=== PATIENT | male | born 1940 ===

== ENCOUNTER 2021-12-31 12:55 | Emergency (ER) | payer MEDICARE, OTHER ==
[2021-12-31 13:07] VITALS: RESP 16; TEMP 98
[2021-12-31] MEDS ORDERED: SODIUM CHLORIDE 0.9% 500 ML 500 ML IV STA (13:18)
--- NOTE | 2021-12-31 13:24 | ED ---
General Adult HPI - General Chief complaint: Weakness Stated complaint: COVID +,Weakness Time Seen by Provider: 12/31/21 13:09 Source: patient, RN notes reviewed, old records reviewed Mode of arrival: ambulatory Limitations: no limitations - History of Present Illness Initial comments: 81-year-old male presents from [facility] where he resides with increased generalized weakness. Patient was diagnosed with coronavirus 5 days ago. He was started on oral antivirals. Patient has had decreased appetite according to staff member who provides history. The patient is unable to contribute to history. He does have developed mental delay and autism. There was a minor fall without reported injury which occurred yesterday. There's been some diarrhea. No reported difficulty breathing. - Related Data Previous Rx's Medication Instructions Recorded Cephalexin [Keflex] 500 mg PO TID #21 cap 12/31/21 Allergies Allergy/AdvReac Type Severity Reaction Status Date / Time Benzodiazepines Allergy Unknown Verified 12/31/21 16:05 haloperidol Allergy Unknown Verified 12/31/21 16:05 Review of Systems ROS Statement: Those systems with pertinent positive or pertinent negative responses have been documented in the HPI. ROS Other: All systems not noted in ROS Statement are negative. Past Medical History Past Medical History: Unable to Obtain History of Any Multi-Drug Resistant Organisms: Unobtainable Past Surgical History: Unable to Obtain Past Psychological History: Unable to Obtain Past Alcohol Use History: Unable to Obtain Past Drug Use History: Unable to Obtain General Exam Limitations: no limitations General appearance: lethargic Head exam: Present: atraumatic, normocephalic Eye exam: Present: normal appearance, PERRL, other ENT exam: Present: mucous membranes dry Respiratory exam: Present: normal lung sounds bilaterally. Absent: respiratory distress, wheezes Cardiovascular Exam: Present: regular rate, normal rhythm GI/Abdominal exam: Present: soft. Absent: distended, tenderness Extremities exam: Present: normal inspection, normal capillary refill. Absent: pedal edema Neurological exam: Absent: motor sensory deficit Skin exam: Present: warm Course Vital Signs 12/31/21 13:02 Temperature 98 F Pulse Rate 78 Respiratory 16 Rate Blood Pressure 102/59 O2 Sat by Pulse 99 Oximetry Medical Decision Making - Medical Decision Making 81-year-old male with generalized weakness, currently being treated for jose navirus. He's had symptoms for the past 5 days. Patient accompanied by caregiver from the [facility] where he resides. This is with a history of his current illnesses obtained. Chest x-ray shows a questionable infiltrate development to this may be coronavirus are secondary bacterial pneumonia. He has normal white blood cell count, mild anemia, mild acute kidney injury with creatinine 1.49. Lactic acid is 2.2. Patient's given IV fluids in the emergency department. He is given a dose of IV antibiotics with the presence of infiltrate on x-ray. Urinalysis was not able to be obtained. He will be started on a short course of antibiotics to cover the possibility of UTI as well as developing bacterial pneumonia. Patient will be discharged back to the [facility]. - Lab Data Result diagrams: 12/31/21 13:34 12/31/21 13:34 Lab Results 12/31/21 12/31/21 12/31/21 Range/Units 13:34 13:34 13:34 WBC 4.8 (3.8-10.6) k/uL RBC 3.73 L (4.30-5.90) m/uL Hgb 12.3 L (13.0-17.5) gm/dL Hct 37.7 L (39.0-53.0) % MCV 101.1 H (80.0-100.0) fL MCH 32.9 (25.0-35.0) pg MCHC 32.6 (31.0-37.0) g/dL RDW 13.7 (11.5-15.5) % Plt Count 176 (150-450) k/uL MPV 8.5 Neutrophils % 70 % Lymphocytes % 21 % Monocytes % 6 % Eosinophils % 1 % Basophils % 0 % Neutrophils # 3.3 (1.3-7.7) k/uL Lymphocytes # 1.0 (1.0-4.8) k/uL Monocytes # 0.3 (0-1.0) k/uL Eosinophils # 0.0 (0-0.7) k/uL Basophils # 0.0 (0-0.2) k/uL Macrocytosis Slight PT 10.4 (9.0-12.0) sec INR 1.0 (<1.2) APTT 25.4 (22.0-30.0) sec Sodium 144 (137-145) mmol/L Potassium 4.5 (3.5-5.1) mmol/L Chloride 108 H (98-107) mmol/L Carbon Dioxide 24 (22-30) mmol/L Anion Gap 12 mmol/L BUN 21 H (9-20) mg/dL Creatinine 1.49 H (0.66-1.25) mg/dL Est GFR (CKD-EPI)AfAm 51 (>60 ml/min/1.73 sqM) Est GFR (CKD-EPI)NonAf 44 (>60 ml/min/1.73 sqM) Glucose 85 (74-99) mg/dL Lactic Ac Sepsis Rflx Plasma Lactic Acid Juan (0.7-2.0) mmol/L Calcium 8.6 (8.4-10.2) mg/dL Magnesium 1.8 (1.6-2.3) mg/dL Total Bilirubin 0.4 (0.2-1.3) mg/dL AST 30 (17-59) U/L ALT 19 (4-49) U/L Alkaline Phosphatase 123 (38-126) U/L Total Protein 6.5 (6.3-8.2) g/dL Albumin 3.8 (3.5-5.0) g/dL 12/31/21 12/31/21 Range/Units 13:34 14:03 WBC (3.8-10.6) k/uL RBC (4.30-5.90) m/uL Hgb (13.0-17.5) gm/dL Hct (39.0-53.0) % MCV (80.0-100.0) fL MCH (25.0-35.0) pg MCHC (31.0-37.0) g/dL RDW (11.5-15.5) % Plt Count (150-450) k/uL MPV Neutrophils % % Lymphocytes % % Monocytes % % Eosinophils % % Basophils % % Neutrophils # (1.3-7.7) k/uL Lymphocytes # (1.0-4.8) k/uL Monocytes # (0-1.0) k/uL Eosinophils # (0-0.7) k/uL Basophils # (0-0.2) k/uL Macrocytosis PT (9.0-12.0) sec INR (<1.2) APTT (22.0-30.0) sec Sodium (137-145) mmol/L Potassium (3.5-5.1) mmol/L Chloride (98-107) mmol/L Carbon Dioxide (22-30) mmol/L Anion Gap mmol/L BUN (9-20) mg/dL Creatinine (0.66-1.25) mg/dL Est GFR (CKD-EPI)AfAm (>60 ml/min/1.73 sqM) Est GFR (CKD-EPI)NonAf (>60 ml/min/1.73 sqM) Glucose (74-99) mg/dL Lactic Ac Sepsis Rflx Y Plasma Lactic Acid Juan 2.2 H* (0.7-2.0) mmol/L Calcium (8.4-10.2) mg/dL Magnesium (1.6-2.3) mg/dL Total Bilirubin (0.2-1.3) mg/dL AST (17-59) U/L ALT (4-49) U/L Alkaline Phosphatase (38-126) U/L Total Protein (6.3-8.2) g/dL Albumin (3.5-5.0) g/dL Disposition Clinical Impression: Anemia, Dehydration, 2019 novel coronavirus disease (COVID-19) Disposition: HOME SELF-CARE Condition: Fair Instructions (If sedation given, give patient instructions): COVID-19 (Coronavirus Disease 2019) (ED) Prescriptions: Cephalexin [Keflex] 500 mg PO TID #21 cap Is patient prescribed a controlled substance at d/c from ED?: No Referrals: Filomena Hernandez DO [Primary Care Provider] - 1-2 days Time of Disposition: 16:11
[2021-12-31 13:46] LABS: Basophils % (A) 0 %; Eosinophils % (A) 1 %; HCT 37.7 % (39.0-53.0); HGB 12.3 gm/dL (13.0-17.5); Lymphocytes % (A) 21 %; MCH 32.9 pg (25.0-35.0); MCHC 32.6 g/dL (31.0-37.0); MCV 101.1 fL (80.0-100.0); Macrocytosis Slight; Mean Platelet Volume 8.5; Monocytes # (A) 0.3 k/uL (0-1.0); Monocytes % (A) 6 %; Neutrophils # (A) 3.3 k/uL (1.3-7.7); Neutrophils % (A) 70 %; Platelet Count 176 k/uL (150-450); RBC 3.73 m/uL (4.30-5.90); RDW 13.7 % (11.5-15.5); WBC 4.8 k/uL (3.8-10.6)
[2021-12-31 14:00] LABS: Partial Thromboplastin Time 25.4 sec (22.0-30.0); Prothrombin Time 10.4 sec (9.0-12.0)
[2021-12-31 14:02] LABS: Albumin 3.8 g/dL (3.5-5.0); Calcium 8.6 mg/dL (8.4-10.2); Magnesium 1.8 mg/dL (1.6-2.3); Potassium 4.5 mmol/L (3.5-5.1); Total Bilirubin 0.4 mg/dL (0.2-1.3); Total Protein 6.5 g/dL (6.3-8.2)
--- NOTE | 2021-12-31 14:19 | XR ---
EXAMINATION TYPE: XR chest 2V DATE OF EXAM: 12/31/2021 COMPARISON: NONE HISTORY: Weakness. TECHNIQUE: Frontal and lateral views of the chest are obtained. FINDINGS: Suboptimal as patient is rotated to the right. Low lung volumes are present. Patchy right b asilar opacity. Left lung is clear. Cardiomegaly is seen with ectatic thoracic aorta. The osseous s tructures are intact. IMPRESSION: Suboptimal study. Cardiomegaly and low lung volumes with suspected patchy right basilar atelectasis and/or developing acute infiltrate. Correlate clinically. Progress study may be helpful.
[2021-12-31] MEDS ORDERED: SODIUM CHLORIDE 0.9% 500 ML 500 ML IV ONE (15:13)
[2021-12-31] MEDS ORDERED: cefTRIAXone IN SWFI 1,000 MG/10 ML SYRINGE IVP STA (16:07)
[2021-12-31 17:01] VITALS: BP 140/89; PULSE 77
== END 2021-12-31 18:00 | disposition home or self-care (01) ==
LOC: EC 12:55
DX: U07.1 COVID-19 (principal); D64.9 Anemia, unspecified; Z88.8 Allergy status to other drugs, medicaments and biological substances
CPT/HCPCS: 36415; 80053; 83605; 83735; 85025; 85610; 85730; 71046; 99285; 96374; 96361; J0696

== ENCOUNTER 2022-01-03 17:19 | Inpatient (IN) | payer MEDICARE, OTHER ==
[2022-01-03] MEDS ORDERED: SODIUM CHLORIDE 0.9% 1,000 ML IV STA ×2 (17:29)
--- NOTE | 2022-01-03 17:44 | ED ---
General Adult HPI - General Stated complaint: weakness Time Seen by Provider: 01/03/22 17:25 Source: EMS, RN notes reviewed, old records reviewed, Caregiver Mode of arrival: EMS Limitations: altered mental status, physical limitation - History of Present Illness Initial comments: 81-year-old male presents for evaluation of increased lethargy generalized weakness. Patient was diagnosed with coronavirus about one week ago. He started on Paxil over the period patient was seen in the emergency department by myself 3 days prior with concerns for dehydration and poor intake. Caregiver indicates that the patient has not had any urine output in the past 12 hours. He has not been eating or drinking well at all. He's had increased lethargy and is not acting himself. He is currently on Paxlovid for coronavirus and Keflex for suspected UTI. - Related Data Home Medications Medication Instructions Recorded Confirmed ALPRAZolam [Xanax] 0.5 mg PO DAILY PRN 12/31/21 01/03/22 Acetaminophen [Tylenol Extra 500 mg PO Q6H PRN 12/31/21 01/03/22 Strength] Ammonium Lactate Cream [Lac-Hydrin 1 applic TOPICAL DAILY 12/31/21 01/03/22 12% Cream] Ascorbic Acid [Vitamin C] 1,000 mg PO DAILY 12/31/21 01/03/22 Aspirin EC [Ecotrin Low Dose] 81 mg PO DAILY 12/31/21 01/03/22 Atorvastatin [Lipitor] 40 mg PO HS 12/31/21 01/03/22 Cholecalciferol [Vitamin D3 (25 50 mcg PO DAILY 12/31/21 01/03/22 Mcg = 1000 Iu)] Collagenase [Santyl Ointment] 1 applic TOPICAL Q48H 12/31/21 01/03/22 Docusate Sodium [Dok] 100 mg PO BID PRN 12/31/21 01/03/22 Lactulose 10 gm PO DIRECTED PRN 12/31/21 01/03/22 Levothyroxine Sodium [Synthroid] 50 mcg PO DAILY 12/31/21 01/03/22 Loperamide HCl [Loperamide] 2 mg PO QID PRN 12/31/21 01/03/22 Magnesium Hydroxide [Milk of 400 mg PO DIRECTED PRN 12/31/21 01/03/22 Magnesia] Melatonin 6 mg PO HS 12/31/21 01/03/22 Mupirocin 2% Oint [Bactroban 2% 1 applic TOPICAL DAILY 12/31/21 01/03/22 Oint] Na Phos,M-B/Na Phos,Di-Ba [Fleet 133 ml RECTAL DAILY PRN 12/31/21 01/03/22 Adult] Nirmatrelvir/Ritonavir [Paxlovid 1 dose PO BID 12/31/21 01/03/22 2X150 mg-100 mg (Eua)] Phenyleph/Mineral Oil/Petrolat 1 applic RECTAL DAILY PRN 12/31/21 01/03/22 [Preparation H Ointment] QUEtiapine FUMARATE [Seroquel] 300 mg PO BID 12/31/21 01/03/22 Vits A and D/White Pet/Lanolin [A 1 applic TOPICAL DIRECTED 12/31/21 01/03/22 and D Ointment] bisacodyL [Dulcolax] 10 mg PO HS 12/31/21 01/03/22 busPIRone HCl [Buspar] 10 mg PO BID@0900,1700 12/31/21 01/03/22 fluPHENAZine [Prolixin 5MG] 5 mg PO DAILY 12/31/21 01/03/22 guaiFENesin-DM 600/30MG [Mucinex 1 tab PO Q12HR 12/31/21 01/03/22 Dm] metFORMIN HCL [Glucophage] 850 mg PO BID 12/31/21 01/03/22 Previous Rx's Medication Instructions Recorded Cephalexin [Keflex] 500 mg PO TID #21 cap 12/31/21 Cephalexin [Keflex] 500 mg PO TID 7 Days #21 cap 12/31/21 Allergies Allergy/AdvReac Type Severity Reaction Status Date / Time Benzodiazepines Allergy Unknown Verified 01/03/22 19:05 haloperidol Allergy Unknown Verified 01/03/22 19:05 Review of Systems ROS Statement: Those systems with pertinent positive or pertinent negative responses have been documented in the HPI. ROS Other: All systems not noted in ROS Statement are negative. Past Medical History Past Medical History: Coronary Artery Disease (CAD), Diabetes Mellitus, Hyperlipidemia, Thyroid Disorder Additional Past Medical History / Comment(s): Autism History of Any Multi-Drug Resistant Organisms: Unobtainable Past Surgical History: No Surgical Hx Reported Past Psychological History: Bipolar Smoking Status: Never smoker Past Alcohol Use History: None Reported Past Drug Use History: None Reported General Exam Limitations: altered mental status, physical limitation General appearance: lethargic Head exam: Present: atraumatic, normocephalic Eye exam: Present: normal appearance, PERRL ENT exam: Present: mucous membranes dry Neck exam: Present: normal inspection. Absent: tenderness, meningismus Respiratory exam: Present: rhonchi, decreased breath sounds. Absent: respiratory distress, wheezes Cardiovascular Exam: Present: regular rate, normal rhythm GI/Abdominal exam: Present: soft. Absent: distended, tenderness, guarding, rebound Extremities exam: Present: normal inspection, normal capillary refill. Absent: pedal edema Neurological exam: Absent: oriented X3 Skin exam: Present: warm, dry Course Vital Signs 01/03/22 01/03/22 17:23 18:53 Temperature 97.8 F Pulse Rate 78 70 Respiratory 16 16 Rate Blood Pressure 85/41 116/57 O2 Sat by Pulse 93 L 96 Oximetry EKG Findings - EKG Comments: EKG Findings:: Sinus rhythm left anterior fascicular block, rate is 67, MO interval 187, QRS duration 112, QTC [address] segment elevation. Medical Decision Making - Medical Decision Making 81-year-old male presenting with increased lethargy, poor appetite and intake. [facility] He does currently have coronavirus he's on oral antivirals. Patient is hypotensive upon arrival. IV is established, IV fluid administered. Laboratory studies obtained. Patient is found to be in acute renal failure with creatinine of 3.8 and elevated BUN. Additionally his potassium is 6.3. This is treated with IV fluids and IV calcium. Repeat potassium is pending. Patient does receive a for catheter in the emergency department for strict I's and O's. Repeat potassium is unchanged, he is administered IV dextrose, IV insulin, sodium bicarbonate continuous IV fluid. He will be monitored on telemetry. - Lab Data Result diagrams: 01/03/22 17:37 01/03/22 18:50 Lab Results 01/03/22 01/03/22 01/03/22 Range/Units 17:37 17:37 17:37 WBC 7.1 (3.8-10.6) k/uL RBC 3.63 L (4.30-5.90) m/uL Hgb 11.8 L (13.0-17.5) gm/dL Hct 37.5 L (39.0-53.0) % MCV 103.4 H (80.0-100.0) fL MCH 32.6 (25.0-35.0) pg MCHC 31.6 (31.0-37.0) g/dL RDW 14.0 (11.5-15.5) % Plt Count 139 L (150-450) k/uL MPV 8.8 Neutrophils % 88 % Lymphocytes % 8 % Monocytes % 2 % Eosinophils % 1 % Basophils % 0 % Neutrophils # 6.3 (1.3-7.7) k/uL Lymphocytes # 0.6 L (1.0-4.8) k/uL Monocytes # 0.1 (0-1.0) k/uL Eosinophils # 0.1 (0-0.7) k/uL Basophils # 0.0 (0-0.2) k/uL Macrocytosis Slight PT 10.5 (9.0-12.0) sec INR 1.0 (<1.2) APTT 28.4 (22.0-30.0) sec Sodium (137-145) mmol/L Potassium (3.5-5.1) mmol/L Chloride (98-107) mmol/L Carbon Dioxide (22-30) mmol/L Anion Gap mmol/L BUN (9-20) mg/dL Creatinine (0.66-1.25) mg/dL Est GFR (CKD-EPI)AfAm (>60 ml/min/1.73 sqM) Est GFR (CKD-EPI)NonAf (>60 ml/min/1.73 sqM) Glucose (74-99) mg/dL Plasma Lactic Acid Juan (0.7-2.0) mmol/L Calcium (8.4-10.2) mg/dL Magnesium (1.6-2.3) mg/dL Total Bilirubin (0.2-1.3) mg/dL AST (17-59) U/L ALT (4-49) U/L Alkaline Phosphatase (38-126) U/L Total Protein (6.3-8.2) g/dL Albumin (3.5-5.0) g/dL Urine Color Yellow Urine Appearance Clear (Clear) Urine pH 5.5 (5.0-8.0) Ur Specific [place] 1.017 (1.001-1.035) Urine Protein 1+ H (Negative) Urine Glucose (UA) Negative (Negative) Urine Ketones Negative (Negative) Urine Blood Negative (Negative) Urine Nitrite Negative (Negative) Urine Bilirubin Negative (Negative) Urine Urobilinogen 2.0 (<2.0) mg/dL Ur Leukocyte Esterase Negative (Negative) Urine RBC <1 (0-5) /hpf Urine WBC 1 (0-5) /hpf Ur Squamous Epith Cells 1 (0-4) /hpf Urine Mucus Rare H (None) /hpf 01/03/22 01/03/22 01/03/22 Range/Units 17:37 17:37 18:50 WBC (3.8-10.6) k/uL RBC (4.30-5.90) m/uL Hgb (13.0-17.5) gm/dL Hct (39.0-53.0) % MCV (80.0-100.0) fL MCH (25.0-35.0) pg MCHC (31.0-37.0) g/dL RDW (11.5-15.5) % Plt Count (150-450) k/uL MPV Neutrophils % % Lymphocytes % % Monocytes % % Eosinophils % % Basophils % % Neutrophils # (1.3-7.7) k/uL Lymphocytes # (1.0-4.8) k/uL Monocytes # (0-1.0) k/uL Eosinophils # (0-0.7) k/uL Basophils # (0-0.2) k/uL Macrocytosis PT (9.0-12.0) sec INR (<1.2) APTT (22.0-30.0) sec Sodium 139 139 (137-145) mmol/L Potassium 6.3 H* 6.3 H* (3.5-5.1) mmol/L Chloride 105 109 H (98-107) mmol/L Carbon Dioxide 17 L 14 L (22-30) mmol/L Anion Gap 17 16 mmol/L BUN 60 H 60 H (9-20) mg/dL Creatinine 3.85 H 3.49 H (0.66-1.25) mg/dL Est GFR (CKD-EPI)AfAm 16 18 (>60 ml/min/1.73 sqM) Est GFR (CKD-EPI)NonAf 14 16 (>60 ml/min/1.73 sqM) Glucose 104 H 97 (74-99) mg/dL Plasma Lactic Acid Juan 3.9 H* (0.7-2.0) mmol/L Calcium 8.2 L 7.5 L (8.4-10.2) mg/dL Magnesium 1.8 (1.6-2.3) mg/dL Total Bilirubin 0.6 (0.2-1.3) mg/dL AST 60 H (17-59) U/L ALT 31 (4-49) U/L Alkaline Phosphatase 96 (38-126) U/L Total Protein 6.0 L (6.3-8.2) g/dL Albumin 3.3 L (3.5-5.0) g/dL Urine Color Urine Appearance (Clear) Urine pH (5.0-8.0) Ur Specific [place] (1.001-1.035) Urine Protein (Negative) Urine Glucose (UA) (Negative) Urine Ketones (Negative) Urine Blood (Negative) Urine Nitrite (Negative) Urine Bilirubin (Negative) Urine Urobilinogen (<2.0) mg/dL Ur Leukocyte Esterase (Negative) Urine RBC (0-5) /hpf Urine WBC (0-5) /hpf Ur Squamous Epith Cells (0-4) /hpf Urine Mucus (None) /hpf Critical Care Time Critical Care Time: Yes Total Critical Care Time: 35 Disposition Clinical Impression: Acute renal failure, Hyperkalemia, Dehydration Disposition: ADMITTED IP TO THIS [facility] Condition: Serious Is patient prescribed a controlled substance at d/c from ED?: No Referrals: Filomena Hernandez DO [REFERRING] - 1-2 days Time of Disposition: 19:28
[2022-01-03 17:59] LABS: Basophils % (A) 0 %; Eosinophils # (A) 0.1 k/uL (0-0.7); Eosinophils % (A) 1 %; HCT 37.5 % (39.0-53.0); HGB 11.8 gm/dL (13.0-17.5); Lymphocytes # (A) 0.6 k/uL (1.0-4.8); Lymphocytes % (A) 8 %; MCH 32.6 pg (25.0-35.0); MCHC 31.6 g/dL (31.0-37.0); MCV 103.4 fL (80.0-100.0); Macrocytosis Slight; Mean Platelet Volume 8.8; Monocytes # (A) 0.1 k/uL (0-1.0); Monocytes % (A) 2 %; Neutrophils # (A) 6.3 k/uL (1.3-7.7); Neutrophils % (A) 88 %; Platelet Count 139 k/uL (150-450); RBC 3.63 m/uL (4.30-5.90); WBC 7.1 k/uL (3.8-10.6)
[2022-01-03 18:07] LABS: Partial Thromboplastin Time 28.4 sec (22.0-30.0); Prothrombin Time 10.5 sec (9.0-12.0)
[2022-01-03 18:20] LABS: Albumin 3.3 g/dL (3.5-5.0); Calcium 8.2 mg/dL (8.4-10.2); Magnesium 1.8 mg/dL (1.6-2.3); Total Bilirubin 0.6 mg/dL (0.2-1.3)
[2022-01-03 18:25] LABS: Potassium 6.3 mmol/L (3.5-5.1)
[2022-01-03] MEDS ORDERED: SODIUM CHLORIDE 0.9% 1,000 ML IV ONE (18:39)
[2022-01-03] MEDS ORDERED: CALCIUM GLUCONATE IN NACL 1 GM in SALINE 1 100ML.BAG IVPB ONE (18:39)
--- NOTE | 2022-01-03 18:51 | XR ---
EXAMINATION TYPE: XR chest 1V portable DATE OF EXAM: 01/03/2022 6:10 PM COMPARISON: Chest radiographs from 12/31/2021 TECHNIQUE: XR chest 1V portable Frontal view of the chest. CLINICAL INDICATION:Male, 81 years old with history of covid, ams; FINDINGS: Rotated exam. Lungs/Pleura: Bibasilar airspace opacities suggested in this rotated exam. Pulmonary vascularity: Unremarkable. Heart/mediastinum: Cardiomediastinal silhouette is enlarged and stable. Musculoskeletal: No acute osseous pathology. IMPRESSION: Rotated exam with cardiomegaly and suggestion of bibasilar airspace opacities versus atelectasis.
[2022-01-03 19:17] LABS: Appearance,Urine Clear (Clear); Bilirubin,Urine Negative (Negative); Blood,Urine Negative (Negative); Color,Urine Yellow; Glucose,Urine (UA) Negative (Negative); Ketones,Urine Negative (Negative); Leukocyte Esterase,Urine Negative (Negative); Mucus,Urine Rare /hpf; Nitrite,Urine Negative (Negative); PH, Urine 5.5 (5.0-8.0); Protein,Urine 1+ (Negative); RBC,Urine <1 /hpf (0-5); Specific Gravity,Urine 1.017 (1.001-1.035); Squamous Epithelial Cell,Urine 1 /hpf (0-4); WBC,Urine 1 /hpf (0-5)
[2022-01-03 19:20] LABS: Calcium 7.5 mg/dL (8.4-10.2)
[2022-01-03] MEDS ORDERED: NALOXONE 0.4 MG/ML 1 ML VIAL IV PRN (19:24)
[2022-01-03] MEDS ORDERED: ACETAMINOPHEN TAB 325 MG TAB PO PRN (19:24)
[2022-01-03 19:26] LABS: Potassium 6.3 mmol/L (3.5-5.1)
[2022-01-03] MEDS ORDERED: INSULIN REGULAR 100 UNIT/ML VIAL (IV) IV ONE (19:27)
[2022-01-03] MEDS ORDERED: DEXTROSE 50% SYRINGE 50 ML IVP ONE (19:27)
[2022-01-03] MEDS ORDERED: SODIUM BICARB 8.4% 50 ML SYR (1 MEQ/ML) IV ONE (19:27)
[2022-01-03] MEDS ORDERED: ALBUTEROL HFA INHALER INHALATION PRN (19:33)
[2022-01-03 21:34] LABS: Partial Thromboplastin Time 28.8 sec (22.0-30.0); Prothrombin Time 10.6 sec (9.0-12.0)
[2022-01-03] MEDS: QUEtiapine 100 MG TAB PO SCH (21:50)
--- NOTE | 2022-01-04 06:51 | P.HPIM ---
History of Present Illness H&P Date: 01/03/22 Chief Complaint: Urinary retention 81-year-old male with developmental delay, autism Patient unable to provide any meaningful history history was obtained by reviewing medical record. She was diagnosed with Covid about 8 days ago he was seen in our facility and then was discharged on antiviral with PAxlovid. And was started on Keflex for suspected urinary tract infection [facility] due to urinary retention. Group who reported no urinary output for over 12 hours. Along with decreased by mouth intake increased lethargy and weakness. Upon evaluation in the ED was found to have elevated lactic acid elevated potassium for which she was given potassium lowering cocktails , acute kidney injury elevated anion gap. Mild anemia at 11.8 and thrombocytopenia, Covid positive Ko catheter was inserted in the ED patient had immediately over 500 mL of urine. Review of Systems ROS unobtainable: due to mental status Past Medical History Past Medical History: Coronary Artery Disease (CAD), Diabetes Mellitus, Hyperlipidemia, Thyroid Disorder Additional Past Medical History / Comment(s): Autism History of Any Multi-Drug Resistant Organisms: Unobtainable Past Surgical History: No Surgical Hx Reported Past Psychological History: Bipolar Smoking Status: Never smoker Past Alcohol Use History: None Reported Past Drug Use History: None Reported - Past Family History Family Family Medical History: Unable to Obtain Additional Family Medical History / Comment(s): Unable to obtain due to mental status Medications and Allergies Home Medications Medication Instructions Recorded Confirmed Type ALPRAZolam [Xanax] 0.5 mg PO DAILY PRN 12/31/21 01/03/22 History Acetaminophen [Tylenol Extra 500 mg PO Q6H PRN 12/31/21 01/03/22 History Strength] Ammonium Lactate Cream [Lac-Hydrin 1 applic TOPICAL DAILY 12/31/21 01/03/22 History 12% Cream] Ascorbic Acid [Vitamin C] 1,000 mg PO DAILY 12/31/21 01/03/22 History Aspirin EC [Ecotrin Low Dose] 81 mg PO DAILY 12/31/21 01/03/22 History Atorvastatin [Lipitor] 40 mg PO HS 12/31/21 01/03/22 History Cephalexin [Keflex] 500 mg PO TID #21 cap 12/31/21 01/03/22 Rx Cephalexin [Keflex] 500 mg PO TID 7 Days #21 cap 12/31/21 01/03/22 Rx Cholecalciferol [Vitamin D3 (25 50 mcg PO DAILY 12/31/21 01/03/22 History Mcg = 1000 Iu)] Collagenase [Santyl Ointment] 1 applic TOPICAL Q48H 12/31/21 01/03/22 History Docusate Sodium [Dok] 100 mg PO BID PRN 12/31/21 01/03/22 History Lactulose 10 gm PO DIRECTED PRN 12/31/21 01/03/22 History Levothyroxine Sodium [Synthroid] 50 mcg PO DAILY 12/31/21 01/03/22 History Loperamide HCl [Loperamide] 2 mg PO QID PRN 12/31/21 01/03/22 History Magnesium Hydroxide [Milk of 400 mg PO DIRECTED PRN 12/31/21 01/03/22 History Magnesia] Melatonin 6 mg PO HS 12/31/21 01/03/22 History Mupirocin 2% Oint [Bactroban 2% 1 applic TOPICAL DAILY 12/31/21 01/03/22 History Oint] Na Phos,M-B/Na Phos,Di-Ba [Fleet 133 ml RECTAL DAILY PRN 12/31/21 01/03/22 History Adult] Nirmatrelvir/Ritonavir [Paxlovid 1 dose PO BID 12/31/21 01/03/22 History 2X150 mg-100 mg (Eua)] Phenyleph/Mineral Oil/Petrolat 1 applic RECTAL DAILY PRN 12/31/21 01/03/22 History [Preparation H Ointment] QUEtiapine FUMARATE [Seroquel] 300 mg PO BID 12/31/21 01/03/22 History Vits A and D/White Pet/Lanolin [A 1 applic TOPICAL DIRECTED 12/31/21 01/03/22 History and D Ointment] bisacodyL [Dulcolax] 10 mg PO HS 12/31/21 01/03/22 History busPIRone HCl [Buspar] 10 mg PO BID@0900,1700 12/31/21 01/03/22 History fluPHENAZine [Prolixin 5MG] 5 mg PO DAILY 12/31/21 01/03/22 History guaiFENesin-DM 600/30MG [Mucinex 1 tab PO Q12HR 12/31/21 01/03/22 History Dm] metFORMIN HCL [Glucophage] 850 mg PO BID 12/31/21 01/03/22 History Allergies Allergy/AdvReac Type Severity Reaction Status Date / Time Benzodiazepines Allergy Unknown Verified 01/03/22 19:05 haloperidol Allergy Unknown Verified 01/03/22 19:05 Physical Exam Vitals: Vital Signs Temp Pulse Resp BP Pulse Ox 01/03/22 18:53 70 16 116/57 96 01/03/22 17:23 97.8 F 78 16 85/41 93 L Intake and Output 01/03/22 01/03/22 01/03/22 06:59 14:59 22:59 Other: Weight 64.41 kg Constitutional: Patient mumbled incomprehensible words, he resists exam Eyes: Anicteric sclerae, moist conjunctiva, Pupils equal round reactive to light ENMT: NC/AT Patient refused opening mouth for examination Neck: Unable to assess the neck is patient again resists exam No carotid bruits No thyromegaly Lungs: Good breath sounds bilaterally Clear to percussion Normal respiratory effort, no accessory muscle use Cardiovascular: Heart regular in rate and rhythm, No murmurs, gallops, or rubs No peripheral edema Abdominal: Soft Nontender, no guarding, rebound or rigidity Abdomen moving with respiration Normoactive bowel sounds No hepatomegaly, No splenomegaly No palpable mass No abdominal wall hernia noted Skin: Normal temperature, tone, texture, turgor No induration No subcutaneous nodules No rash, lesions No ulcers Extremities: No digital cyanosis No clubbing Pedal pulses intact and symmetrical Radial pulses intact and symmetrical No calf tenderness Psychiatric: Alert , patient has developmental delays and autism Neuro patient has good strength in all extremities he resists exam unable to do neurologic evaluation Lymphatics: no palpable cervical or supraclavicular , lymph nodes Results CBC & Chem 7: 01/03/22 17:37 01/03/22 22:40 Labs: Abnormal Lab Results - Last 24 Hours (Table) 01/03/22 01/03/22 01/03/22 Range/Units 17:37 17:37 17:37 RBC 3.63 L (4.30-5.90) m/uL Hgb 11.8 L (13.0-17.5) gm/dL Hct 37.5 L (39.0-53.0) % MCV 103.4 H (80.0-100.0) fL Plt Count 139 L (150-450) k/uL Lymphocytes # 0.6 L (1.0-4.8) k/uL Potassium 6.3 H* (3.5-5.1) mmol/L Chloride (98-107) mmol/L Carbon Dioxide 17 L (22-30) mmol/L BUN 60 H (9-20) mg/dL Creatinine 3.85 H (0.66-1.25) mg/dL Glucose 104 H (74-99) mg/dL Plasma Lactic Acid Juan (0.7-2.0) mmol/L Calcium 8.2 L (8.4-10.2) mg/dL AST 60 H (17-59) U/L Total Protein 6.0 L (6.3-8.2) g/dL Albumin 3.3 L (3.5-5.0) g/dL Urine Protein 1+ H (Negative) Urine Mucus Rare H (None) /hpf 01/03/22 01/03/22 Range/Units 17:37 18:50 RBC (4.30-5.90) m/uL Hgb (13.0-17.5) gm/dL Hct (39.0-53.0) % MCV (80.0-100.0) fL Plt Count (150-450) k/uL Lymphocytes # (1.0-4.8) k/uL Potassium 6.3 H* (3.5-5.1) mmol/L Chloride 109 H (98-107) mmol/L Carbon Dioxide 14 L (22-30) mmol/L BUN 60 H (9-20) mg/dL Creatinine 3.49 H (0.66-1.25) mg/dL Glucose (74-99) mg/dL Plasma Lactic Acid Juan 3.9 H* (0.7-2.0) mmol/L Calcium 7.5 L (8.4-10.2) mg/dL AST (17-59) U/L Total Protein (6.3-8.2) g/dL Albumin (3.5-5.0) g/dL Urine Protein (Negative) Urine Mucus (None) /hpf Assessment and Plan Assessment: Urinary retention status post Ko catheter insertion Neurology evaluation UA unremarkable ko cath care Covid positive Oxygen saturation on room air is within normal limits Continue supportive care Patient status post paxlovid Check labs for prognostic evaluation of Covid Acute kidney injury Decreased by mouth intake IV fluid hydration Check renal ultrasound to rule out postobstructive uropathy Hyperkalemia resolved Status post potassium lowering medications Lactic acidosis resolved Continue with IV fluid hydration Developmental delays and autism at baseline Full code DVT prophylaxis heparin subcu 3 times a day
[2022-01-04 11:49] LABS: Glucose,Whole Blood 132 mg/dL (70-110)
[2022-01-04] MEDS: LEVOTHYROXINE 50 MCG TAB PO SCH (12:05)
[2022-01-04] MEDS: ASPIRIN 81 MG PO SCH (12:06)
[2022-01-04] MEDS: QUEtiapine 100 MG TAB PO SCH ×2 (12:06→21:16)
[2022-01-04] MEDS: busPIRone HCl 10 MG TAB PO SCH ×2 (12:06→16:56)
[2022-01-04] MEDS: HEPARIN SODIUM,PORCINE/PF 5,000 UNIT/0.5 ML SYRINGE SQ SCH ×2 (12:08→17:02)
[2022-01-04 12:25] LABS: Basophils % (A) 0 %; Eosinophils # (A) 0.1 k/uL (0-0.7); Eosinophils % (A) 1 %; HCT 33.5 % (39.0-53.0); Lymphocytes # (A) 0.3 k/uL (1.0-4.8); Lymphocytes % (A) 7 %; MCH 33.7 pg (25.0-35.0); Macrocytosis Slight; Mean Platelet Volume 9.1; Monocytes # (A) 0.1 k/uL (0-1.0); Monocytes % (A) 3 %; Neutrophils # (A) 4.3 k/uL (1.3-7.7); Neutrophils % (A) 88 %; Platelet Count 142 k/uL (150-450); RBC 3.28 m/uL (4.30-5.90); RDW 13.9 % (11.5-15.5); WBC 4.8 k/uL (3.8-10.6)
[2022-01-04] MEDS ORDERED: SODIUM CHLORIDE 0.9% 1,000 ML IV STA (12:35)
--- NOTE | 2022-01-04 12:51 | P.PN ---
Subjective Progress Note Date: 01/04/22 Principal diagnosis: weakness According to the nursing staff patient won't eat or take his pills. He was spitting his food out of his mouth. There was no fever recorded. Still has a Ko catheter. Objective - Vital Signs Vital signs: Vital Signs Temp 98.7 F 01/04/22 09:41 Pulse 72 01/04/22 09:41 Resp 16 01/04/22 09:41 BP 103/66 01/04/22 09:41 Pulse Ox 92 L 01/04/22 09:41 FiO2 Intake & Output 01/03/22 01/04/22 01/04/22 18:59 06:59 18:59 Output Total 1200 Balance -1200 Weight 64.41 kg 64.41 kg Output: Urine 1200 Other: Voiding Method Indwelling Catheter Indwelling Catheter - Exam Constitutional: No acute distress, nonverbal Eyes:Anicteric sclerae, moist conjunctiva, no lid-lag, PERRLA, ENMT: Oropharynx clear, no erythema, exudates Neck:FROM, no masses, or JVD, No carotid bruits, No thyromegaly Lungs: Clear to auscultation, Clear to percussion, Normal respiratory effort, no accessory muscle use Cardiovascular: Heart regular in rate and rhythm, No murmurs, gallops, or rubs, No peripheral edema Abdominal: Soft, Nontender, no guarding, rebound or rigidity, Normoactive bowel sounds, No hepatomegaly, No splenomegaly, No palpable mass Skin: Normal temperature, tone, texture, turgor, no induration, No subcutaneous nodules, No rash, lesions, No ulcers Extremities: No digital cyanosis, No clubbing, Pedal pulses intact and symmetrical, Radial pulses intact and symmetrical, No calf tenderness Neuro: Nonverbal, not following commands. Moving all extremities. no focal sensory deficits - Labs CBC & Chem 7: 01/04/22 12:07 01/03/22 22:40 Labs: Abnormal Lab Results - Last 24 Hours (Table) 01/03/22 01/03/22 01/03/22 Range/Units 17:37 17:37 17:37 RBC 3.63 L (4.30-5.90) m/uL Hgb 11.8 L (13.0-17.5) gm/dL Hct 37.5 L (39.0-53.0) % MCV 103.4 H (80.0-100.0) fL Plt Count 139 L (150-450) k/uL Lymphocytes # 0.6 L (1.0-4.8) k/uL Fibrinogen (200-500) mg/dL D-Dimer (<0.60) mg/L FEU Potassium 6.3 H* (3.5-5.1) mmol/L Chloride (98-107) mmol/L Carbon Dioxide 17 L (22-30) mmol/L BUN 60 H (9-20) mg/dL Creatinine 3.85 H (0.66-1.25) mg/dL Glucose 104 H (74-99) mg/dL POC Glucose (mg/dL) (70-110) mg/dL Plasma Lactic Acid Juan (0.7-2.0) mmol/L Calcium 8.2 L (8.4-10.2) mg/dL AST 60 H (17-59) U/L C-Reactive Protein (<1.0) mg/dL Total Protein 6.0 L (6.3-8.2) g/dL Albumin 3.3 L (3.5-5.0) g/dL Procalcitonin (0.02-0.09) ng/mL Urine Protein 1+ H (Negative) Urine Mucus Rare H (None) /hpf Coronavirus (PCR) (Not Detectd) 01/03/22 01/03/22 01/03/22 Range/Units 17:37 18:50 19:55 RBC (4.30-5.90) m/uL Hgb (13.0-17.5) gm/dL Hct (39.0-53.0) % MCV (80.0-100.0) fL Plt Count (150-450) k/uL Lymphocytes # (1.0-4.8) k/uL Fibrinogen (200-500) mg/dL D-Dimer (<0.60) mg/L FEU Potassium 6.3 H* (3.5-5.1) mmol/L Chloride 109 H (98-107) mmol/L Carbon Dioxide 14 L (22-30) mmol/L BUN 60 H (9-20) mg/dL Creatinine 3.49 H (0.66-1.25) mg/dL Glucose (74-99) mg/dL POC Glucose (mg/dL) (70-110) mg/dL Plasma Lactic Acid Juan 3.9 H* (0.7-2.0) mmol/L Calcium 7.5 L (8.4-10.2) mg/dL AST (17-59) U/L C-Reactive Protein (<1.0) mg/dL Total Protein (6.3-8.2) g/dL Albumin (3.5-5.0) g/dL Procalcitonin (0.02-0.09) ng/mL Urine Protein (Negative) Urine Mucus (None) /hpf Coronavirus (PCR) Detected A (Not Detectd) 01/03/22 01/03/22 01/03/22 Range/Units 20:54 20:54 20:54 RBC (4.30-5.90) m/uL Hgb (13.0-17.5) gm/dL Hct (39.0-53.0) % MCV (80.0-100.0) fL Plt Count (150-450) k/uL Lymphocytes # (1.0-4.8) k/uL Fibrinogen 662 H (200-500) mg/dL D-Dimer 1.20 H (<0.60) mg/L FEU Potassium (3.5-5.1) mmol/L Chloride (98-107) mmol/L Carbon Dioxide (22-30) mmol/L BUN (9-20) mg/dL Creatinine (0.66-1.25) mg/dL Glucose (74-99) mg/dL POC Glucose (mg/dL) (70-110) mg/dL Plasma Lactic Acid Juan (0.7-2.0) mmol/L Calcium (8.4-10.2) mg/dL AST (17-59) U/L C-Reactive Protein 24.0 H (<1.0) mg/dL Total Protein (6.3-8.2) g/dL Albumin (3.5-5.0) g/dL Procalcitonin 0.60 H (0.02-0.09) ng/mL Urine Protein (Negative) Urine Mucus (None) /hpf Coronavirus (PCR) (Not Detectd) 01/03/22 01/03/22 01/04/22 Range/Units 20:54 23:51 11:47 RBC (4.30-5.90) m/uL Hgb (13.0-17.5) gm/dL Hct (39.0-53.0) % MCV (80.0-100.0) fL Plt Count (150-450) k/uL Lymphocytes # (1.0-4.8) k/uL Fibrinogen (200-500) mg/dL D-Dimer (<0.60) mg/L FEU Potassium (3.5-5.1) mmol/L Chloride (98-107) mmol/L Carbon Dioxide (22-30) mmol/L BUN (9-20) mg/dL Creatinine (0.66-1.25) mg/dL Glucose (74-99) mg/dL POC Glucose (mg/dL) 132 H (70-110) mg/dL Plasma Lactic Acid Juan 3.8 H* 3.1 H* (0.7-2.0) mmol/L Calcium (8.4-10.2) mg/dL AST (17-59) U/L C-Reactive Protein (<1.0) mg/dL Total Protein (6.3-8.2) g/dL Albumin (3.5-5.0) g/dL Procalcitonin (0.02-0.09) ng/mL Urine Protein (Negative) Urine Mucus (None) /hpf Coronavirus (PCR) (Not Detectd) 01/04/22 Range/Units 12:07 RBC 3.28 L (4.30-5.90) m/uL Hgb 11.0 L (13.0-17.5) gm/dL Hct 33.5 L (39.0-53.0) % MCV 102.0 H (80.0-100.0) fL Plt Count 142 L (150-450) k/uL Lymphocytes # 0.3 L (1.0-4.8) k/uL Fibrinogen (200-500) mg/dL D-Dimer (<0.60) mg/L FEU Potassium (3.5-5.1) mmol/L Chloride (98-107) mmol/L Carbon Dioxide (22-30) mmol/L BUN (9-20) mg/dL Creatinine (0.66-1.25) mg/dL Glucose (74-99) mg/dL POC Glucose (mg/dL) (70-110) mg/dL Plasma Lactic Acid Juan (0.7-2.0) mmol/L Calcium (8.4-10.2) mg/dL AST (17-59) U/L C-Reactive Protein (<1.0) mg/dL Total Protein (6.3-8.2) g/dL Albumin (3.5-5.0) g/dL Procalcitonin (0.02-0.09) ng/mL Urine Protein (Negative) Urine Mucus (None) /hpf Coronavirus (PCR) (Not Detectd) Assessment and Plan Plan: Urinary retention status post Ko catheter insertion Urology evaluation UA unremarkable ko cath care Covid positive Oxygen saturation on room air is within normal limits Continue supportive care Patient status post paxlovid Acute kidney injury guerda due to dehydration IV fluid hydration Check renal ultrasound to rule out postobstructive uropathy Follow up cr in am Poor oral intake Could be sec to covid. R/o swallowing issues, will get ERECTING ENGINEER evaluation. Hyperkalemia F/u K today Status post potassium lowering medications DM 2 Hold oral meds SSI Lactic acidosis resolved Developmental delays and autism at baseline Full code DVT prophylaxis heparin subcu 3 times a day
[2022-01-04 12:56] LABS: African American GFR (CKD) 26 (>60 ml/min/1.73 sqM); Anion Gap 11 mmol/L; Blood Urea Nitrogen 51 mg/dL (9-20); Calcium 8.1 mg/dL (8.4-10.2); Carbon Dioxide 20 mmol/L (22-30); Chloride 114 mmol/L (98-107); Glucose 95 mg/dL (74-99); Non-African American GFR(CKD) 23 (>60 ml/min/1.73 sqM); Potassium 5.3 mmol/L (3.5-5.1); Sodium 145 mmol/L (137-145)
[2022-01-04] MEDS: SANTYL TOPICAL SCH (14:30)
[2022-01-04 16:40] LABS: Glucose,Whole Blood 113 mg/dL (70-110)
[2022-01-04] MEDS: INSULIN ASPART (NovoLOG) 100 UNIT/ML VIAL SQ SCH ×2 (16:59→20:48)
[2022-01-04 20:17] LABS: Glucose,Whole Blood 114 mg/dL (70-110)
[2022-01-04] MEDS: MELATONIN 3 MG TABLET PO SCH (21:06)
[2022-01-04] MEDS: ATORVASTATIN 40 MG TAB PO SCH (21:06)
[2022-01-05] MEDS: HEPARIN SODIUM,PORCINE/PF 5,000 UNIT/0.5 ML SYRINGE SQ SCH ×4 (00:43→23:47)
[2022-01-05] MEDS: INSULIN ASPART (NovoLOG) 100 UNIT/ML VIAL SQ SCH ×4 (08:07→21:39)
[2022-01-05] MEDS: QUEtiapine 100 MG TAB PO SCH ×2 (08:11→23:17)
[2022-01-05] MEDS: busPIRone HCl 10 MG TAB PO SCH ×2 (08:11→17:15)
[2022-01-05] MEDS: ASPIRIN 81 MG PO SCH (08:11)
[2022-01-05] MEDS: LEVOTHYROXINE 50 MCG TAB PO SCH (08:11)
[2022-01-05] MEDS: TAMSULOSIN 0.4 MG CAP.ER.24H PO SCH (08:27)
[2022-01-05 10:51] LABS: Basophils # (A) 0.02 X 10*3/uL (0.00-0.10); Basophils % (A) 0.4 %; Eosinophils # (A) 0.05 X 10*3/uL (0.04-0.35); Eosinophils % (A) 1.1 %; HCT 34.2 % (39.6-50.0); HGB 11.2 g/dL (13.0-17.0); Immature Grans, Automated 0.6 %; Lymphocytes # (A) 0.76 X 10*3/uL (0.90-5.00); Lymphocytes % (A) 16.4 %; MCH 33.4 pg (27.0-32.0); MCHC 32.7 g/dL (32.0-37.0); MCV 102.1 fL (80.0-97.0); Mean Platelet Volume 12.1 fL (9.5-12.2); Monocytes # (A) 0.21 X 10*3/uL (0.20-1.00); Monocytes % (A) 4.5 %; NRBC Per 100 WBC 0 /100 WBCS (0.0-0.0); Neutrophils # (A) 3.56 X 10*3/uL (1.80-7.70); Platelet Count 171 X 10*3/uL (140-440); RBC 3.35 X 10*6/uL (4.40-5.60); RDW 15.1 % (11.5-14.5); WBC 4.63 X 10*3/uL (4.50-10.00)
[2022-01-05 11:14] LABS: African American GFR (CKD) 35.3 (60.0-200.0); Anion Gap 15.8 mmol/L (10.00-18.00); BUN/Creat Ratio 23.86 Ratio (12.00-20.00); Blood Urea Nitrogen 48.2 mg/dL (9.0-27.0); Carbon Dioxide 16.6 mmol/L (20.0-27.5); Magnesium 2.1 mg/dL (1.5-2.4); Non-African American GFR(CKD) 30.5 (60.0-200.0); Potassium 5.5 mmol/L (3.5-5.5)
[2022-01-05 12:36] LABS: Glucose,Whole Blood 103 mg/dL (70-110)
[2022-01-05] MEDS: DEXTROSE 5% IN WATER 1,000 ML IV SCH (13:13)
--- NOTE | 2022-01-05 13:29 | P.GSCN ---
History of Present Illness Consult date: 01/05/22 Reason for Consult: urinary retention History of present illness: 81-year-old male with hx of developmental delay, and autism. patient admitted to the hospital with acute kidney injury and urinary retention. Pinzon catheter was placed in the ER with return of over 500 mL of urine. Patient does have urinary symptoms at baseline, no previous known history of urinary retention. No evidence of gross hematuria or dysuria. Of note he was recently seen in the ER and was discharged home on antibiotics, urinalysis was obtained which was negative. Review of Systems ROS unobtainable: due to mental status - Constitutional Reports weight loss Past Medical History Past Medical History: Coronary Artery Disease (CAD), Diabetes Mellitus, Hyperlipidemia, Prostate Disorder, Thyroid Disorder Additional Past Medical History / Comment(s): Autism, constipation, amnestic, right foot wound, History of Any Multi-Drug Resistant Organisms: Unobtainable Past Surgical History: No Surgical Hx Reported Past Psychological History: Bipolar Smoking Status: Never smoker Past Alcohol Use History: None Reported Past Drug Use History: None Reported - Past Family History Family Family Medical History: Unable to Obtain Additional Family Medical History / Comment(s): Unable to obtain due to mental status Medications and Allergies Home Medications Medication Instructions Recorded Confirmed Type ALPRAZolam [Xanax] 0.5 mg PO DAILY PRN 12/31/21 01/03/22 History Acetaminophen [Tylenol Extra 500 mg PO Q6H PRN 12/31/21 01/03/22 History Strength] Ammonium Lactate Cream [Lac-Hydrin 1 applic TOPICAL DAILY 12/31/21 01/03/22 History 12% Cream] Ascorbic Acid [Vitamin C] 1,000 mg PO DAILY 12/31/21 01/03/22 History Aspirin EC [Ecotrin Low Dose] 81 mg PO DAILY 12/31/21 01/03/22 History Atorvastatin [Lipitor] 40 mg PO HS 12/31/21 01/03/22 History Cephalexin [Keflex] 500 mg PO TID #21 cap 12/31/21 01/03/22 Rx Cephalexin [Keflex] 500 mg PO TID 7 Days #21 cap 12/31/21 01/03/22 Rx Cholecalciferol [Vitamin D3 (25 50 mcg PO DAILY 12/31/21 01/03/22 History Mcg = 1000 Iu)] Collagenase [Santyl Ointment] 1 applic TOPICAL Q48H 12/31/21 01/03/22 History Docusate Sodium [Dok] 100 mg PO BID PRN 12/31/21 01/03/22 History Lactulose 10 gm PO DIRECTED PRN 12/31/21 01/03/22 History Levothyroxine Sodium [Synthroid] 50 mcg PO DAILY 12/31/21 01/03/22 History Loperamide HCl [Loperamide] 2 mg PO QID PRN 12/31/21 01/03/22 History Magnesium Hydroxide [Milk of 400 mg PO DIRECTED PRN 12/31/21 01/03/22 History Magnesia] Melatonin 6 mg PO HS 12/31/21 01/03/22 History Mupirocin 2% Oint [Bactroban 2% 1 applic TOPICAL DAILY 12/31/21 01/03/22 History Oint] Na Phos,M-B/Na Phos,Di-Ba [Fleet 133 ml RECTAL DAILY PRN 12/31/21 01/03/22 History Adult] Nirmatrelvir/Ritonavir [Paxlovid 1 dose PO BID 12/31/21 01/03/22 History 2X150 mg-100 mg (Eua)] Phenyleph/Mineral Oil/Petrolat 1 applic RECTAL DAILY PRN 12/31/21 01/03/22 History [Preparation H Ointment] QUEtiapine FUMARATE [Seroquel] 300 mg PO BID 12/31/21 01/03/22 History Vits A and D/White Pet/Lanolin [A 1 applic TOPICAL DIRECTED 12/31/21 01/03/22 History and D Ointment] bisacodyL [Dulcolax] 10 mg PO HS 12/31/21 01/03/22 History busPIRone HCl [Buspar] 10 mg PO BID@0900,1700 12/31/21 01/03/22 History fluPHENAZine [Prolixin 5MG] 5 mg PO DAILY 12/31/21 01/03/22 History guaiFENesin-DM 600/30MG [Mucinex 1 tab PO Q12HR 12/31/21 01/03/22 History Dm] metFORMIN HCL [Glucophage] 850 mg PO BID 12/31/21 01/03/22 History Allergies Allergy/AdvReac Type Severity Reaction Status Date / Time Benzodiazepines Allergy Unknown Verified 01/03/22 19:05 haloperidol Allergy Unknown Verified 01/03/22 19:05 Surgical - Exam Vital Signs Temp Pulse Resp BP Pulse Ox 97.8 F 78 16 85/41 93 L 01/03/22 17:23 01/03/22 17:23 01/03/22 17:23 01/03/22 17:23 01/03/22 17:23 - General no distress, no pain - ENT normal nares, normal mucosa - Respiratory normal expansion, normal respiratory effort - Abdomen Abdomen: soft, non tender - Genitourinary Pinzon in place draining clear urine normal penis with no external lesions, testicles non-tender Results - Labs 01/05/22 07:30 01/05/22 07:30 Abnormal Lab Results - Last 24 Hours (Table) 01/04/22 01/04/22 01/05/22 Range/Units 16:30 20:15 07:30 RBC 3.35 L (4.40-5.60) X 10*6/uL Hgb 11.2 L (13.0-17.0) g/dL Hct 34.2 L (39.6-50.0) % MCV 102.1 H (80.0-97.0) fL MCH 33.4 H (27.0-32.0) pg RDW 15.1 H (11.5-14.5) % Lymphocytes # 0.76 L (0.90-5.00) X 10*3/uL Sodium (135-145) mmol/L Chloride (96-109) mmol/L Carbon Dioxide (20.0-27.5) mmol/L BUN (9.0-27.0) mg/dL Creatinine (0.6-1.5) mg/dL Est GFR (CKD-EPI)AfAm (60.0-200.0) Est GFR (CKD-EPI)NonAf (60.0-200.0) BUN/Creatinine Ratio (12.00-20.00) Ratio POC Glucose (mg/dL) 113 H 114 H (70-110) mg/dL 01/05/22 Range/Units 07:30 RBC (4.40-5.60) X 10*6/uL Hgb (13.0-17.0) g/dL Hct (39.6-50.0) % MCV (80.0-97.0) fL MCH (27.0-32.0) pg RDW (11.5-14.5) % Lymphocytes # (0.90-5.00) X 10*3/uL Sodium 147 H (135-145) mmol/L Chloride 115 H (96-109) mmol/L Carbon Dioxide 16.6 L (20.0-27.5) mmol/L BUN 48.2 H (9.0-27.0) mg/dL Creatinine 2.0 H (0.6-1.5) mg/dL Est GFR (CKD-EPI)AfAm 35.3 L (60.0-200.0) Est GFR (CKD-EPI)NonAf 30.5 L (60.0-200.0) BUN/Creatinine Ratio 23.86 H (12.00-20.00) Ratio POC Glucose (mg/dL) (70-110) mg/dL Microbiology - Last 24 Hours (Table) 01/03/22 17:28 Blood Culture - Preliminary Blood No Growth after 24 hours 01/03/22 17:40 Blood Culture - Preliminary Blood No Growth after 24 hours Diabetes panel 01/05/22 Range/Units 07:30 Sodium 147 H (135-145) mmol/L Potassium 5.5 (3.5-5.5) mmol/L Chloride 115 H (96-109) mmol/L Carbon Dioxide 16.6 L (20.0-27.5) mmol/L BUN 48.2 H (9.0-27.0) mg/dL Creatinine 2.0 H (0.6-1.5) mg/dL Glucose 87 (70-110) mg/dL Calcium 9.0 (8.7-10.3) mg/dL Calcium panel 01/05/22 Range/Units 07:30 Calcium 9.0 (8.7-10.3) mg/dL Pituitary panel 01/05/22 Range/Units 07:30 Sodium 147 H (135-145) mmol/L Potassium 5.5 (3.5-5.5) mmol/L Chloride 115 H (96-109) mmol/L Carbon Dioxide 16.6 L (20.0-27.5) mmol/L BUN 48.2 H (9.0-27.0) mg/dL Creatinine 2.0 H (0.6-1.5) mg/dL Glucose 87 (70-110) mg/dL Calcium 9.0 (8.7-10.3) mg/dL Adrenal panel 01/05/22 Range/Units 07:30 Sodium 147 H (135-145) mmol/L Potassium 5.5 (3.5-5.5) mmol/L Chloride 115 H (96-109) mmol/L Carbon Dioxide 16.6 L (20.0-27.5) mmol/L BUN 48.2 H (9.0-27.0) mg/dL Creatinine 2.0 H (0.6-1.5) mg/dL Glucose 87 (70-110) mg/dL Calcium 9.0 (8.7-10.3) mg/dL Assessment and Plan Assessment: 81-year-old male with history of developmental delay. Admitted to the hospital with acute kidney injury and urinary retention, creatinine has been trending down since Pinzon insertion. Pinzon was inserted with return of 500 mL. Patient does have obstructive urinary symptoms at baseline. Of note he has had a decline in his mental status and functional status since his last hospital admission for COVID. At this time I recommend keeping the catheter in place until patient's until status status returns to baseline. We'll start trial of Flomax. . At this point he can follow-up as an outpatient for trial of void
--- NOTE | 2022-01-05 14:00 | US ---
EXAMINATION TYPE: US renals and bladder DATE OF EXAM: 01/05/2022 COMPARISON: NONE CLINICAL HISTORY: elevated creatinine. Elevated creatinine. EXAM MEASUREMENTS: Right Kidney: 10.0 x 5.5 x 4.6 cm Left Kidney: 9.5 x 4.8 x 4.8 cm Right Kidney: Hypoechoic area seen: 0.6 x 0.7 x 0.6 cm. Left Kidney: No hydronephrosis or masses seen Bladder: Not distended, unable to evaluate. Catheter in place. Bilateral Jets seen: No Some increased cortical echogenicity bilaterally. Incidental subcentimeter lesion right kidney favore d benign thin-walled cyst. No hydronephrosis bilaterally. Pinzon catheter decompresses bladder. Pinzon balloon noted. IMPRESSION: Evidence of chronic medical renal disease. No hydronephrosis seen bilaterally.
--- NOTE | 2022-01-05 14:18 | P.PN ---
Subjective Progress Note Date: 01/05/22 Principal diagnosis: weakness Patient still refusing to take anything by mouth including food and his meds which is not his baseline. No fevers recorded. Objective - Vital Signs Vital signs: Vital Signs Temp 99.4 F 01/05/22 10:53 Pulse 77 01/05/22 10:53 Resp 16 01/05/22 10:53 BP 131/83 01/05/22 10:53 Pulse Ox 93 L 01/05/22 10:53 FiO2 Intake & Output 01/04/22 01/05/22 01/05/22 18:59 06:59 18:59 Output Total 1000 1400 Balance -1000 -1400 Weight 64.41 kg Output: Urine 1000 1400 Other: Voiding Method Indwelling Catheter Indwelling Catheter Indwelling Catheter # Voids 1,000 - Exam Constitutional: No acute distress, nonverbal Eyes:Anicteric sclerae, moist conjunctiva, no lid-lag, PERRLA, ENMT: Oropharynx clear, no erythema, exudates Neck:FROM, no masses, or JVD, No carotid bruits, No thyromegaly Lungs: Clear to auscultation, Clear to percussion, Normal respiratory effort, no accessory muscle use Cardiovascular: Heart regular in rate and rhythm, No murmurs, gallops, or rubs, No peripheral edema Abdominal: Soft, Nontender, no guarding, rebound or rigidity, Normoactive bowel sounds, No hepatomegaly, No splenomegaly, No palpable mass Skin: Normal temperature, tone, texture, turgor, no induration, No subcutaneous nodules, No rash, lesions, No ulcers Extremities: No digital cyanosis, No clubbing, Pedal pulses intact and symmetrical, Radial pulses intact and symmetrical, No calf tenderness Neuro: Nonverbal, not following commands. Moving all extremities. no focal sensory deficits - Labs CBC & Chem 7: 01/05/22 07:30 01/05/22 07:30 Labs: Abnormal Lab Results - Last 24 Hours (Table) 01/04/22 01/04/22 01/05/22 Range/Units 16:30 20:15 07:30 RBC 3.35 L (4.40-5.60) X 10*6/uL Hgb 11.2 L (13.0-17.0) g/dL Hct 34.2 L (39.6-50.0) % MCV 102.1 H (80.0-97.0) fL MCH 33.4 H (27.0-32.0) pg RDW 15.1 H (11.5-14.5) % Lymphocytes # 0.76 L (0.90-5.00) X 10*3/uL Sodium (135-145) mmol/L Chloride (96-109) mmol/L Carbon Dioxide (20.0-27.5) mmol/L BUN (9.0-27.0) mg/dL Creatinine (0.6-1.5) mg/dL Est GFR (CKD-EPI)AfAm (60.0-200.0) Est GFR (CKD-EPI)NonAf (60.0-200.0) BUN/Creatinine Ratio (12.00-20.00) Ratio POC Glucose (mg/dL) 113 H 114 H (70-110) mg/dL 01/05/22 Range/Units 07:30 RBC (4.40-5.60) X 10*6/uL Hgb (13.0-17.0) g/dL Hct (39.6-50.0) % MCV (80.0-97.0) fL MCH (27.0-32.0) pg RDW (11.5-14.5) % Lymphocytes # (0.90-5.00) X 10*3/uL Sodium 147 H (135-145) mmol/L Chloride 115 H (96-109) mmol/L Carbon Dioxide 16.6 L (20.0-27.5) mmol/L BUN 48.2 H (9.0-27.0) mg/dL Creatinine 2.0 H (0.6-1.5) mg/dL Est GFR (CKD-EPI)AfAm 35.3 L (60.0-200.0) Est GFR (CKD-EPI)NonAf 30.5 L (60.0-200.0) BUN/Creatinine Ratio 23.86 H (12.00-20.00) Ratio POC Glucose (mg/dL) (70-110) mg/dL Microbiology - Last 24 Hours (Table) 01/03/22 17:28 Blood Culture - Preliminary Blood No Growth after 24 hours 01/03/22 17:40 Blood Culture - Preliminary Blood No Growth after 24 hours Assessment and Plan Plan: Urinary retention status post Ko catheter insertion Urology ordered flomax but patient not willing to take any oral meds. UA unremarkable ko cath care Covid positive Oxygen saturation on room air is within normal limits Continue supportive care Patient status post paxlovid Hypernatremia Change IV fluids to D5W Recheck in am Acute kidney injury guerda due to dehydration Cr improving with IV fluid hydration Renal ultrasound showed medical renal disease, no hydro Follow up cr in am Poor oral intake Could be sec to covid vs GERSON/dehydration Hyperkalemia Worse today, continue to follow DM 2 Hold oral meds SSI Lactic acidosis resolved Developmental delays and autism at baseline Full code DVT prophylaxis heparin subcu 3 times a day
[2022-01-05 17:14] LABS: Glucose,Whole Blood 123 mg/dL (70-110)
[2022-01-05 21:05] LABS: Glucose,Whole Blood 183 mg/dL (70-110)
[2022-01-05] MEDS: ATORVASTATIN 40 MG TAB PO SCH ×2 (21:41→23:12)
[2022-01-05] MEDS: MELATONIN 3 MG TABLET PO SCH (23:12)
[2022-01-06] MEDS: DEXTROSE 5% IN WATER 1,000 ML IV SCH ×2 (01:05→17:17)
[2022-01-06 06:58] LABS: Glucose,Whole Blood 165 mg/dL (70-110)
[2022-01-06] MEDS: HEPARIN SODIUM,PORCINE/PF 5,000 UNIT/0.5 ML SYRINGE SQ SCH ×3 (09:19→23:57)
[2022-01-06] MEDS: INSULIN ASPART (NovoLOG) 100 UNIT/ML VIAL SQ SCH ×4 (09:19→22:52)
[2022-01-06] MEDS: QUEtiapine 100 MG TAB PO SCH ×2 (09:20→22:52)
[2022-01-06] MEDS: TAMSULOSIN 0.4 MG CAP.ER.24H PO SCH (09:21)
[2022-01-06] MEDS: LEVOTHYROXINE 50 MCG TAB PO SCH (09:22)
[2022-01-06] MEDS: busPIRone HCl 10 MG TAB PO SCH ×2 (09:23→17:17)
[2022-01-06] MEDS: ASPIRIN 81 MG PO SCH (09:23)
[2022-01-06 10:43] LABS: Basophils # (A) 0.03 X 10*3/uL (0.00-0.10); Basophils % (A) 0.4 %; Eosinophils # (A) 0.08 X 10*3/uL (0.04-0.35); HCT 34.2 % (39.6-50.0); HGB 11.4 g/dL (13.0-17.0); Immature Grans, Automated 0.9 %; Lymphocytes # (A) 1.04 X 10*3/uL (0.90-5.00); Lymphocytes % (A) 13.2 %; MCH 32.8 pg (27.0-32.0); MCHC 33.3 g/dL (32.0-37.0); MCV 98.3 fL (80.0-97.0); Monocytes # (A) 0.34 X 10*3/uL (0.20-1.00); Monocytes % (A) 4.3 %; NRBC Per 100 WBC 0 /100 WBCS (0.0-0.0); Neutrophils # (A) 6.29 X 10*3/uL (1.80-7.70); Neutrophils % (A) 80.2 %; Platelet Count 170 X 10*3/uL (140-440); RBC 3.48 X 10*6/uL (4.40-5.60); RDW 14.6 % (11.5-14.5); WBC 7.85 X 10*3/uL (4.50-10.00)
[2022-01-06 11:07] LABS: Glucose,Whole Blood 165 mg/dL (70-110)
[2022-01-06 11:33] LABS: African American GFR (CKD) 50.6 (60.0-200.0); Anion Gap 11.1 mmol/L (10.00-18.00); BUN/Creat Ratio 27.8 Ratio (12.00-20.00); Blood Urea Nitrogen 41.7 mg/dL (9.0-27.0); Calcium 8.8 mg/dL (8.7-10.3); Carbon Dioxide 18.9 mmol/L (20.0-27.5); Non-African American GFR(CKD) 43.7 (60.0-200.0); Potassium 4.9 mmol/L (3.5-5.5)
[2022-01-06] MEDS: SANTYL TOPICAL SCH (12:23)
--- NOTE | 2022-01-06 14:51 | P.PN ---
Subjective Progress Note Date: 01/06/22 Principal diagnosis: weakness Patient took a bite of food last evening and was given the meds. However this morning he is refusing to eat or take his medications. No fevers or chills. Objective - Vital Signs Vital signs: Vital Signs Temp 98.7 F 01/06/22 10:00 Pulse 88 01/06/22 10:00 Resp 17 01/06/22 02:00 BP 158/79 01/06/22 10:00 Pulse Ox 92 L 01/06/22 10:00 FiO2 Intake & Output 01/05/22 01/06/22 01/06/22 18:59 06:59 18:59 Output Total 700 1400 Balance -700 -1400 Output: Urine 700 1400 Other: Voiding Method Indwelling Catheter Indwelling Catheter - Exam Constitutional: No acute distress, nonverbal Eyes:Anicteric sclerae, moist conjunctiva, no lid-lag, PERRLA, ENMT: Oropharynx clear, no erythema, exudates Neck:FROM, no masses, or JVD, No carotid bruits, No thyromegaly Lungs: Clear to auscultation, Clear to percussion, Normal respiratory effort, no accessory muscle use Cardiovascular: Heart regular in rate and rhythm, No murmurs, gallops, or rubs, No peripheral edema Abdominal: Soft, Nontender, no guarding, rebound or rigidity, Normoactive bowel sounds, No hepatomegaly, No splenomegaly, No palpable mass Skin: Normal temperature, tone, texture, turgor, no induration, No subcutaneous nodules, No rash, lesions, No ulcers Extremities: No digital cyanosis, No clubbing, Pedal pulses intact and s ymmetrical, Radial pulses intact and symmetrical, No calf tenderness Neuro: Nonverbal, not following commands. Moving all extremities. no focal sensory deficits - Labs CBC & Chem 7: 01/06/22 06:54 01/06/22 06:54 Labs: Abnormal Lab Results - Last 24 Hours (Table) 01/05/22 01/05/22 01/06/22 Range/Units 17:12 21:03 06:54 RBC 3.48 L (4.40-5.60) X 10*6/uL Hgb 11.4 L (13.0-17.0) g/dL Hct 34.2 L (39.6-50.0) % MCV 98.3 H (80.0-97.0) fL MCH 32.8 H (27.0-32.0) pg RDW 14.6 H (11.5-14.5) % Immature Gran # 0.07 H (0.00-0.04) X 10*3/uL Chloride (96-109) mmol/L Carbon Dioxide (20.0-27.5) mmol/L BUN (9.0-27.0) mg/dL Est GFR (CKD-EPI)AfAm (60.0-200.0) Est GFR (CKD-EPI)NonAf (60.0-200.0) BUN/Creatinine Ratio (12.00-20.00) Ratio Glucose (70-110) mg/dL POC Glucose (mg/dL) 123 H 183 H (70-110) mg/dL 01/06/22 01/06/22 01/06/22 Range/Units 06:54 06:56 11:05 RBC (4.40-5.60) X 10*6/uL Hgb (13.0-17.0) g/dL Hct (39.6-50.0) % MCV (80.0-97.0) fL MCH (27.0-32.0) pg RDW (11.5-14.5) % Immature Gran # (0.00-0.04) X 10*3/uL Chloride 112 H (96-109) mmol/L Carbon Dioxide 18.9 L (20.0-27.5) mmol/L BUN 41.7 H (9.0-27.0) mg/dL Est GFR (CKD-EPI)AfAm 50.6 L (60.0-200.0) Est GFR (CKD-EPI)NonAf 43.7 L (60.0-200.0) BUN/Creatinine Ratio 27.80 H (12.00-20.00) Ratio Glucose 165 H (70-110) mg/dL POC Glucose (mg/dL) 165 H 165 H (70-110) mg/dL Microbiology - Last 24 Hours (Table) 01/03/22 17:28 Blood Culture - Preliminary Blood No Growth after 48 hours 01/03/22 17:40 Blood Culture - Preliminary Blood No Growth after 48 hours Assessment and Plan Plan: Urinary retention status post Ko catheter insertion Urology ordered flomax but patient not willing to take any oral meds. UA unremarkable ko cath care Covid positive Oxygen saturation on room air is within normal limits Continue supportive care Patient status post paxlovid Hypernatremia Continue D5W Improved Acute kidney injury likley due to dehydration Resolved with IV fluid hydration Renal ultrasound showed medical renal disease, no hydro Poor oral intake Could be sec to covid vs GERSON/dehydration Hyperkalemia Resolved DM 2 Hold oral meds SSI Lactic acidosis resolved Developmental delays and autism at baseline Full code DVT prophylaxis heparin subcu 3 times a day
[2022-01-06 16:46] LABS: Glucose,Whole Blood 181 mg/dL (70-110)
[2022-01-06 21:22] LABS: Glucose,Whole Blood 153 mg/dL (70-110)
[2022-01-06] MEDS: ATORVASTATIN 40 MG TAB PO SCH (22:52)
[2022-01-06] MEDS: MELATONIN 3 MG TABLET PO SCH (22:53)
[2022-01-07] MEDS: DEXTROSE 5% IN WATER 1,000 ML IV SCH ×2 (05:14→10:01)
[2022-01-07 07:00] LABS: Glucose,Whole Blood 203 mg/dL (70-110)
[2022-01-07 09:30] LABS: Basophils # (A) 0.04 X 10*3/uL (0.00-0.10); Basophils % (A) 0.4 %; Eosinophils # (A) 0.03 X 10*3/uL (0.04-0.35); Eosinophils % (A) 0.3 %; HCT 34.6 % (39.6-50.0); HGB 11.7 g/dL (13.0-17.0); Immature Grans, Automated 1.1 %; Lymphocytes # (A) 1.21 X 10*3/uL (0.90-5.00); Lymphocytes % (A) 12.2 %; MCH 33.3 pg (27.0-32.0); MCHC 33.8 g/dL (32.0-37.0); MCV 98.6 fL (80.0-97.0); Monocytes # (A) 0.35 X 10*3/uL (0.20-1.00); Monocytes % (A) 3.5 %; NRBC Per 100 WBC 0 /100 WBCS (0.0-0.0); Neutrophils # (A) 8.14 X 10*3/uL (1.80-7.70); Neutrophils % (A) 82.5 %; Platelet Count 174 X 10*3/uL (140-440); RBC 3.51 X 10*6/uL (4.40-5.60); RDW 13.9 % (11.5-14.5); WBC 9.88 X 10*3/uL (4.50-10.00)
[2022-01-07 09:47] LABS: African American GFR (CKD) 66.3 (60.0-200.0); Anion Gap 11.9 mmol/L (10.00-18.00); BUN/Creat Ratio 24.75 Ratio (12.00-20.00); Blood Urea Nitrogen 29.7 mg/dL (9.0-27.0); Calcium 8.6 mg/dL (8.7-10.3); Carbon Dioxide 18.1 mmol/L (20.0-27.5); Magnesium 1.9 mg/dL (1.5-2.4); Non-African American GFR(CKD) 57.2 (60.0-200.0); Potassium 4.6 mmol/L (3.5-5.5)
[2022-01-07] MEDS: INSULIN ASPART (NovoLOG) 100 UNIT/ML VIAL SQ SCH ×4 (10:30→22:42)
[2022-01-07] MEDS: LEVOTHYROXINE 50 MCG TAB PO SCH (10:32)
[2022-01-07] MEDS: TAMSULOSIN 0.4 MG CAP.ER.24H PO SCH (10:32)
[2022-01-07] MEDS: HEPARIN SODIUM,PORCINE/PF 5,000 UNIT/0.5 ML SYRINGE SQ SCH ×3 (10:32→22:39)
[2022-01-07] MEDS: busPIRone HCl 10 MG TAB PO SCH ×2 (10:33→17:19)
[2022-01-07] MEDS: QUEtiapine 100 MG TAB PO SCH (10:33)
[2022-01-07] MEDS: ASPIRIN 81 MG PO SCH (10:33)
[2022-01-07 11:06] LABS: Glucose,Whole Blood 191 mg/dL (70-110)
--- NOTE | 2022-01-07 13:07 | P.PN ---
Subjective Progress Note Date: 01/07/22 Principal diagnosis: weakness Patient ate oatmeal he was given for breakfast this morning. Yesterday he was not eating. No fevers or chills recorded. Objective - Vital Signs Vital signs: Vital Signs Temp 97.9 F 01/07/22 10:05 Pulse 79 01/07/22 10:05 Resp 18 01/07/22 10:05 BP 147/92 01/07/22 10:05 Pulse Ox 94 L 01/07/22 10:05 FiO2 Intake & Output 01/06/22 01/07/22 01/07/22 18:59 06:59 18:59 Output Total 2074 275 Balance -2074 Output: Urine 2074 Other: Voiding Method Indwelling Catheter Indwelling Catheter Indwelling Catheter - Exam Constitutional: No acute distress, nonverbal Eyes:Anicteric sclerae, moist conjunctiva, no lid-lag, PERRLA, ENMT: Oropharynx clear, no erythema, exudates Neck:FROM, no masses, or JVD, No carotid bruits, No thyromegaly Lungs: Clear to auscultation, Clear to percussion, Normal respiratory effort, no accessory muscle use Cardiovascular: Heart regular in rate and rhythm, No murmurs, gallops, or rubs, No peripheral edema Abdominal: Soft, Nontender, no guarding, rebound or rigidity, Normoactive bowel sounds, No hepatomegaly, No splenomegaly, No palpable mass Skin: Normal temperature, tone, texture, turgor, no induration, No subcutaneous nodules, No rash, lesions, No ulcers Extremities: No digital cyanosis, No clubbing, Pedal pulses intact and symmetrical, Radial pulses intact and symmetrical, No calf tenderness Neuro: Nonverbal, not following commands. Moving all extremities. no focal sensory deficits - Labs CBC & Chem 7: 01/07/22 06:25 01/07/22 06:25 Labs: Abnormal Lab Results - Last 24 Hours (Table) 01/06/22 01/06/22 01/07/22 Range/Units 16:45 21:21 06:25 RBC 3.51 L (4.40-5.60) X 10*6/uL Hgb 11.7 L (13.0-17.0) g/dL Hct 34.6 L (39.6-50.0) % MCV 98.6 H (80.0-97.0) fL MCH 33.3 H (27.0-32.0) pg MPV 13.0 H (9.5-12.2) fL Immature Gran # 0.11 H (0.00-0.04) X 10*3/uL Neutrophils # 8.14 H (1.80-7.70) X 10*3/uL Eosinophils # 0.03 L (0.04-0.35) X 10*3/uL Carbon Dioxide (20.0-27.5) mmol/L BUN (9.0-27.0) mg/dL Est GFR (CKD-EPI)NonAf (60.0-200.0) BUN/Creatinine Ratio (12.00-20.00) Ratio Glucose (70-110) mg/dL POC Glucose (mg/dL) 181 H 153 H (70-110) mg/dL Calcium (8.7-10.3) mg/dL 01/07/22 01/07/22 01/07/22 Range/Units 06:25 06:58 11:05 RBC (4.40-5.60) X 10*6/uL Hgb (13.0-17.0) g/dL Hct (39.6-50.0) % MCV (80.0-97.0) fL MCH (27.0-32.0) pg MPV (9.5-12.2) fL Immature Gran # (0.00-0.04) X 10*3/uL Neutrophils # (1.80-7.70) X 10*3/uL Eosinophils # (0.04-0.35) X 10*3/uL Carbon Dioxide 18.1 L (20.0-27.5) mmol/L BUN 29.7 H (9.0-27.0) mg/dL Est GFR (CKD-EPI)NonAf 57.2 L (60.0-200.0) BUN/Creatinine Ratio 24.75 H (12.00-20.00) Ratio Glucose 201 H (70-110) mg/dL POC Glucose (mg/dL) 203 H 191 H (70-110) mg/dL Calcium 8.6 L (8.7-10.3) mg/dL Microbiology - Last 24 Hours (Table) 01/03/22 17:28 Blood Culture - Preliminary Blood No Growth after 72 hours 01/03/22 17:40 Blood Culture - Preliminary Blood No Growth after 72 hours Assessment and Plan Plan: Urinary retention status post Ko catheter insertion Urology ordered flomax but patient not willing to take any oral meds. UA unremarkable ko cath care Covid positive Oxygen saturation on room air is within normal limits Continue supportive care Patient status post paxlovid Hypernatremia Resolved, DC IV fluids Acute kidney injury likley due to dehydration Resolved with IV fluid hydration Renal ultrasound showed medical renal disease, no hydro Poor oral intake Could be sec to covid vs GERSON/dehydration Hyperkalemia Resolved DM 2 Hold oral meds SSI Lactic acidosis resolved Developmental delays and autism at baseline Full code DVT prophylaxis heparin subcu 3 times a day Likely discharge back to [place] in a.m.
[2022-01-07 16:59] LABS: Glucose,Whole Blood 160 mg/dL (70-110)
[2022-01-07 21:01] LABS: Glucose,Whole Blood 154 mg/dL (70-110)
[2022-01-07] MEDS: MELATONIN 3 MG TABLET PO SCH (22:38)
[2022-01-07] MEDS: ATORVASTATIN 40 MG TAB PO SCH (22:39)
[2022-01-08] MEDS: QUEtiapine 100 MG TAB PO SCH ×3 (00:31→20:17)
[2022-01-08 07:09] LABS: Glucose,Whole Blood 132 mg/dL (70-110)
[2022-01-08] MEDS: INSULIN ASPART (NovoLOG) 100 UNIT/ML VIAL SQ SCH ×4 (08:06→20:31)
[2022-01-08] MEDS: busPIRone HCl 10 MG TAB PO SCH ×2 (08:32→17:13)
[2022-01-08] MEDS: LEVOTHYROXINE 50 MCG TAB PO SCH (08:32)
[2022-01-08] MEDS: HEPARIN SODIUM,PORCINE/PF 5,000 UNIT/0.5 ML SYRINGE SQ SCH ×3 (08:32→23:07)
[2022-01-08] MEDS: ASPIRIN 81 MG PO SCH (08:32)
[2022-01-08] MEDS: TAMSULOSIN 0.4 MG CAP.ER.24H PO SCH (08:32)
[2022-01-08 11:47] LABS: Glucose,Whole Blood 193 mg/dL (70-110)
[2022-01-08] MEDS: SANTYL TOPICAL SCH (12:15)
--- NOTE | 2022-01-08 12:33 | P.PN ---
Subjective Progress Note Date: 01/08/22 Principal diagnosis: weakness This is still not eating and drinking appropriately. He is still not taking his oral medications either. He was sleeping this morning. Objective - Vital Signs Vital signs: Vital Signs Temp 98.3 F 01/08/22 10:26 Pulse 71 01/08/22 10:26 Resp 13 01/08/22 10:26 BP 139/72 01/08/22 10:26 Pulse Ox 92 L 01/08/22 10:26 FiO2 Intake & Output 01/07/22 01/08/22 01/08/22 18:59 06:59 18:59 Intake Total 900 Output Total 1200 400 Balance -300 -400 Intake: IV 900 Dextrose 5% in Water 1, 900 000 ml @ 75 mls/hr IV . [id number] [facility] Rx#:[id number] Output: Urine 1200 400 Uretheral (Ko) 1200 Other: Voiding Method Indwelling Catheter Indwelling Catheter Indwelling Catheter - Exam Constitutional: No acute distress, nonverbal Eyes:Anicteric sclerae, moist conjunctiva, no lid-lag, PERRLA, ENMT: Oropharynx clear, no erythema, exudates Neck:FROM, no masses, or JVD, No carotid bruits, No thyromegaly Lungs: Clear to auscultation, Clear to percussion, Normal respiratory effort, no accessory muscle use Cardiovascular: Heart regular in rate and rhythm, No murmurs, gallops, or rubs, No peripheral edema Abdominal: Soft, Nontender, no guarding, rebound or rigidity, Normoactive bowel sounds, No hepatomegaly, No splenomegaly, No palpable mass Skin: Normal temperature, tone, texture, turgor, no induration, No subcutaneous nodules, No rash, lesions, No ulcers Extremities: No digital cyanosis, No clubbing, Pedal pulses intact and symmetrical, Radial pulses intact and symmetrical, No calf tenderness Neuro: Nonverbal, not following commands. Moving all extremities. no focal sensory deficits - Labs CBC & Chem 7: 01/07/22 06:25 01/07/22 06:25 Labs: Abnormal Lab Results - Last 24 Hours (Table) 01/07/22 01/07/22 01/08/22 Range/Units 16:58 20:59 07:08 POC Glucose (mg/dL) 160 H 154 H 132 H (70-110) mg/dL 01/08/22 Range/Units 11:45 POC Glucose (mg/dL) 193 H (70-110) mg/dL Microbiology - Last 24 Hours (Table) 01/03/22 17:28 Blood Culture - Preliminary Blood No Growth after 96 hours 01/03/22 17:40 Blood Culture - Preliminary Blood No Growth after 96 hours Assessment and Plan Plan: Urinary retention status post Ko catheter insertion Urology ordered flomax but patient not willing to take any oral meds. UA unremarkable ko cath care Covid positive Oxygen saturation on room air is within normal limits Continue supportive care Patient status post paxlovid Hypernatremia Resolved, DC IV fluids Acute kidney injury likley due to dehydration Resolved with IV fluid hydration Renal ultrasound showed medical renal disease, no hydro Poor oral intake Could be sec to covid vs GERSON/dehydration Patient still not eating and drinking appropriately Case was discussed with his public guardian Rosemary Nicole on the phone, number [phone] and she is consenting to placing a PEG tube. Will reevaluate tomorrow, if still with poor intake will place surgery consult for peg. Hyperkalemia Resolved DM 2 Hold oral meds SSI Lactic acidosis resolved Developmental delays and autism at baseline Full code DVT prophylaxis heparin subcu 3 times a day
[2022-01-08 16:46] LABS: Glucose,Whole Blood 227 mg/dL (70-110)
[2022-01-08] MEDS: ATORVASTATIN 40 MG TAB PO SCH (20:16)
[2022-01-08] MEDS: MELATONIN 3 MG TABLET PO SCH (20:17)
[2022-01-08 20:40] LABS: Glucose,Whole Blood 197 mg/dL (70-110)
[2022-01-08 20:40] LABS: Glucose,Whole Blood 331 mg/dL (70-110)
[2022-01-09 07:22] LABS: Glucose,Whole Blood 127 mg/dL (70-110)
[2022-01-09] MEDS: ASPIRIN 81 MG PO SCH ×3 (08:47→09:39)
[2022-01-09] MEDS: HEPARIN SODIUM,PORCINE/PF 5,000 UNIT/0.5 ML SYRINGE SQ SCH ×3 (08:47→23:58)
[2022-01-09] MEDS: QUEtiapine 100 MG TAB PO SCH ×4 (08:47→21:45)
[2022-01-09] MEDS: INSULIN ASPART (NovoLOG) 100 UNIT/ML VIAL SQ SCH ×4 (08:47→21:39)
[2022-01-09] MEDS: LEVOTHYROXINE 50 MCG TAB PO SCH ×3 (08:47→09:38)
[2022-01-09] MEDS: busPIRone HCl 10 MG TAB PO SCH ×4 (08:47→17:54)
[2022-01-09] MEDS: TAMSULOSIN 0.4 MG CAP.ER.24H PO SCH ×3 (08:47→09:39)
[2022-01-09 10:48] LABS: Basophils # (A) 0.03 X 10*3/uL (0.00-0.10); Basophils % (A) 0.5 %; Eosinophils # (A) 0.09 X 10*3/uL (0.04-0.35); Eosinophils % (A) 1.4 %; HCT 37.5 % (39.6-50.0); HGB 12.6 g/dL (13.0-17.0); Immature Grans, Automated 1.4 %; Lymphocytes # (A) 2.31 X 10*3/uL (0.90-5.00); Lymphocytes % (A) 35.6 %; MCH 33.4 pg (27.0-32.0); MCHC 33.6 g/dL (32.0-37.0); MCV 99.5 fL (80.0-97.0); Mean Platelet Volume 12.4 fL (9.5-12.2); Monocytes # (A) 0.31 X 10*3/uL (0.20-1.00); Monocytes % (A) 4.8 %; NRBC Per 100 WBC 0 /100 WBCS (0.0-0.0); Neutrophils # (A) 3.66 X 10*3/uL (1.80-7.70); Neutrophils % (A) 56.3 %; Platelet Count 242 X 10*3/uL (140-440); RBC 3.77 X 10*6/uL (4.40-5.60); RDW 13.8 % (11.5-14.5); WBC 6.49 X 10*3/uL (4.50-10.00)
[2022-01-09 11:58] LABS: Glucose,Whole Blood 156 mg/dL (70-110)
[2022-01-09 12:38] LABS: African American GFR (CKD) 60.1 (60.0-200.0); Anion Gap 10.3 mmol/L (10.00-18.00); BUN/Creat Ratio 22.92 Ratio (12.00-20.00); Blood Urea Nitrogen 29.8 mg/dL (9.0-27.0); Calcium 9.3 mg/dL (8.7-10.3); Carbon Dioxide 21.7 mmol/L (20.0-27.5); Non-African American GFR(CKD) 51.9 (60.0-200.0); Potassium 5.3 mmol/L (3.5-5.5)
--- NOTE | 2022-01-09 13:14 | P.PN ---
Subjective Progress Note Date: 01/09/22 Principal diagnosis: weakness Patient doing well, starting to eat according to nursing staff that he is spitting out his medications. I was planning to discharge him today, called the long-term who stated that he is ambulatory at baseline. He is currently very weak and will likely require rehab stay. Objective - Vital Signs Vital signs: Vital Signs Temp 97.7 F 01/09/22 10:16 Pulse 72 01/09/22 10:16 Resp 13 01/09/22 10:16 BP 133/73 01/09/22 10:16 Pulse Ox 94 L 01/09/22 10:16 FiO2 Intake & Output 01/08/22 01/09/22 01/09/22 18:59 06:59 18:59 Output Total 100 650 Balance -100 -650 Output: Urine 100 650 Other: Voiding Method Indwelling Catheter Indwelling Catheter # Voids 650 - Exam Constitutional: No acute distress, nonverbal Eyes:Anicteric sclerae, moist conjunctiva, no lid-lag, PERRLA, ENMT: Oropharynx clear, no erythema, exudates Neck:FROM, no masses, or JVD, No carotid bruits, No thyromegaly Lungs: Clear to auscultation, Clear to percussion, Normal respiratory effort, no accessory muscle use Cardiovascular: Heart regular in rate and rhythm, No murmurs, gallops, or rubs, No peripheral edema Abdominal: Soft, Nontender, no guarding, rebound or rigidity, Normoactive bowel sounds, No hepatomegaly, No splenomegaly, No palpable mass Skin: Normal temperature, tone, texture, turgor, no induration, No subcutaneous nodules, No rash, lesions, No ulcers Extremities: No digital cyanosis, No clubbing, Pedal pulses intact and symmetrical, Radial pulses intact and symmetrical, No calf tenderness Neuro: Nonverbal, not following commands. Moving all extremities. no focal sensory deficits - Labs CBC & Chem 7: 01/09/22 06:16 01/09/22 06:16 Labs: Abnormal Lab Results - Last 24 Hours (Table) 01/08/22 01/08/22 01/08/22 Range/Units 16:44 20:26 20:28 RBC (4.40-5.60) X 10*6/uL Hgb (13.0-17.0) g/dL Hct (39.6-50.0) % MCV (80.0-97.0) fL MCH (27.0-32.0) pg MPV (9.5-12.2) fL Immature Gran # (0.00-0.04) X 10*3/uL BUN (9.0-27.0) mg/dL Est GFR (CKD-EPI)NonAf (60.0-200.0) BUN/Creatinine Ratio (12.00-20.00) Ratio Glucose (70-110) mg/dL POC Glucose (mg/dL) 227 H 331 H 197 H (70-110) mg/dL 01/09/22 01/09/22 01/09/22 Range/Units 06:16 06:16 07:21 RBC 3.77 L (4.40-5.60) X 10*6/uL Hgb 12.6 L (13.0-17.0) g/dL Hct 37.5 L (39.6-50.0) % MCV 99.5 H (80.0-97.0) fL MCH 33.4 H (27.0-32.0) pg MPV 12.4 H (9.5-12.2) fL Immature Gran # 0.09 H (0.00-0.04) X 10*3/uL BUN 29.8 H (9.0-27.0) mg/dL Est GFR (CKD-EPI)NonAf 51.9 L (60.0-200.0) BUN/Creatinine Ratio 22.92 H (12.00-20.00) Ratio Glucose 138 H (70-110) mg/dL POC Glucose (mg/dL) 127 H (70-110) mg/dL 01/09/22 Range/Units 11:56 RBC (4.40-5.60) X 10*6/uL Hgb (13.0-17.0) g/dL Hct (39.6-50.0) % MCV (80.0-97.0) fL MCH (27.0-32.0) pg MPV (9.5-12.2) fL Immature Gran # (0.00-0.04) X 10*3/uL BUN (9.0-27.0) mg/dL Est GFR (CKD-EPI)NonAf (60.0-200.0) BUN/Creatinine Ratio (12.00-20.00) Ratio Glucose (70-110) mg/dL POC Glucose (mg/dL) 156 H (70-110) mg/dL Microbiology - Last 24 Hours (Table) 01/03/22 17:28 Blood Culture - Preliminary Blood No Growth after 120 hours 01/03/22 17:40 Blood Culture - Preliminary Blood No Growth after 120 hours Assessment and Plan Plan: Urinary retention status post Ko catheter insertion Urology ordered flomax but patient not willing to take any oral meds. UA unremarkable Dicontinue ko cath Covid positive Oxygen saturation on room air is within normal limits Continue supportive care Patient status post paxlovid Hypernatremia Resolved, DC IV fluids Acute kidney injury likley due to dehydration Resolved with IV fluid hydration Renal ultrasound showed medical renal disease, no hydro Poor oral intake Could be sec to covid vs GERSON/dehydration Patient still not eating and drinking appropriately Case was discussed with his public guardian Rosemary Nicole on the phone, number [phone] and she is consenting to placing a PEG tube. However he is currently improving, starting to eat, continue to monitor oral intake for now. Hyperkalemia Resolved DM 2 Hold oral meds SSI Lactic acidosis resolved Developmental delays and autism at baseline General weakens PT and OT Full code DVT prophylaxis heparin subcu 3 times a day
[2022-01-09 16:30] LABS: Glucose,Whole Blood 113 mg/dL (70-110)
[2022-01-09 21:02] LABS: Glucose,Whole Blood 132 mg/dL (70-110)
[2022-01-09] MEDS: MELATONIN 3 MG TABLET PO SCH (21:45)
[2022-01-09] MEDS: ATORVASTATIN 40 MG TAB PO SCH (21:45)
[2022-01-10 06:59] LABS: Glucose,Whole Blood 119 mg/dL (70-110)
[2022-01-10] MEDS: INSULIN ASPART (NovoLOG) 100 UNIT/ML VIAL SQ SCH ×4 (07:09→21:29)
[2022-01-10] MEDS: HEPARIN SODIUM,PORCINE/PF 5,000 UNIT/0.5 ML SYRINGE SQ SCH ×2 (08:18→17:27)
[2022-01-10] MEDS: ASPIRIN 81 MG PO SCH ×2 (08:18→08:39)
[2022-01-10] MEDS: LEVOTHYROXINE 50 MCG TAB PO SCH ×2 (08:18→08:38)
[2022-01-10] MEDS: TAMSULOSIN 0.4 MG CAP.ER.24H PO SCH ×3 (08:18→17:34)
[2022-01-10] MEDS: busPIRone HCl 10 MG TAB PO SCH ×3 (08:18→17:28)
[2022-01-10] MEDS: QUEtiapine 100 MG TAB PO SCH ×3 (08:19→21:29)
[2022-01-10 11:34] LABS: Glucose,Whole Blood 126 mg/dL (70-110)
[2022-01-10 14:51] VITALS: BMI 27.7
[2022-01-10 16:59] LABS: Glucose,Whole Blood 153 mg/dL (70-110)
[2022-01-10] MEDS: SANTYL TOPICAL SCH (17:02)
--- NOTE | 2022-01-10 19:27 | P.PN ---
Progress Note - Text Progress Note Date: 01/10/22 Hospital course: Admitted with increasing lethargy and weakness. He was diagnosed with COVID 19 one week prior to admission. Was given paxlovid. Patient presented with poor urine output for several hours. Not eating or drinking well. Increase lethargic. Not acting himself. Also was on Keflex for UTI when admitted. January 10: I assumed care of patient today from [facility] Spoke to the nurse and the nurse 8. Patient is been refusing to eat food or take his medications. Also not getting his Flomax. Urinary retention. Later today Pinzon catheter was placed. When try to feed the patient reports his hand over his mouth. Did try to reassure the patient. Active Medications Acetaminophen (Acetaminophen Tab 325 Mg Tab) 650 mg PO Q6HR PRN PRN Reason: Mild Pain or Fever > 100.5 Albuterol Sulfate (Albuterol Hfa Inhaler) 2 puff INHALATION RT-Q6H PRN PRN Reason: Shortness Of Breath Or Wheezing Aspirin (Aspirin 81 Mg) 81 mg PO DAILY [facility] Last Admin: 01/10/22 08:39 Dose: Not Given Atorvastatin Calcium (Atorvastatin 40 Mg Tab) 40 mg PO HS [facility] Last Admin: 01/09/22 21:45 Dose: 40 mg Buspirone HCl (Buspirone Hcl 10 Mg Tab) 10 mg PO BID@0900,1700 [facility] Last Admin: 01/10/22 17:28 Dose: 10 mg Fluphenazine HCl (Fluphenazine 5 Mg Tab) 5 mg PO DAILY [facility] Last Admin: 01/10/22 08:39 Dose: Not Given Heparin Sodium (Porcine) (Heparin Sodium,Porcine/Pf 5,000 Unit/0.5 Ml Syringe) 5,000 unit SQ Q8HR [facility] Last Admin: 01/10/22 17:27 Dose: 5,000 unit Insulin Aspart (Insulin Aspart (Novolog) 100 Unit/Ml Vial) 0 unit SQ [facility]; Protocol Last Admin: 01/10/22 17:03 Dose: Not Given Levothyroxine Sodium (Levothyroxine 50 Mcg Tab) 50 mcg PO DAILY@0730 [facility] Last Admin: 01/10/22 08:38 Dose: Not Given Melatonin (Melatonin 3 Mg Tablet) 6 mg PO [facility] Last Admin: 01/09/22 21:45 Dose: 6 mg Naloxone HCl (Naloxone 0.4 Mg/Ml 1 Ml Vial) 0.2 mg IV Q2M PRN PRN Reason: Opioid Reversal Santyl 1 each TOPICAL Q48H [facility]; Protocol Last Admin: 01/10/22 17:02 Dose: Not Given Quetiapine Fumarate (Quetiapine 100 Mg Tab) 300 mg PO BID [facility] Last Admin: 01/10/22 08:39 Dose: Not Given Tamsulosin HCl (Tamsulosin 0.4 Mg Cap.Er.24h) 0.4 mg PO PC-BRKFST [facility] Last Admin: 01/10/22 17:34 Dose: 0.4 mg On examination: VITAL SIGNS: [98.4, 72, 16, 132/64, 97% room air] GENERAL APPEARANCE: Laying in bed, not in distress, HEENT: Normal external appearance of nose and ear. Oral cavity dry mucous membranes EYES: Pupils equal. Conjunctiva normal. NECK: JVD not raised. Mass not palpable. RESPIRATORY: Respiratory effort normal.-clear to auscultation. CARDIOVASCULAR: First and second sounds normal. No edema. ABDOMEN: Soft. Liver and spleen not palpable. No tenderness. No mass palpable. PSYCHIATRY: Unable to assess as patient not really talking INVESTIGATIONS, reviewed in the clinical context: White count 6.4 hemoglobin 12.6 platelets 242 potassium 4.3 creatinine 1.3 Admission labs: Potassium 6.3 BUN 60 creatinine 3.85 lactic acid 3.9 pro-calcitonin 0.6 COVID 19 [PCR]: Detected Assessment and plan: -Acute metabolic encephalopathy, from renal failure on presentation: Improving -Acute kidney injury, patient of ATN and prerenal from decreased oral intake: Better Admission creatinine was 3.8 -Acute anorexia, possibly from metabolic causes and COVID-19 Patient has been refusing food and medications. Encouraged -Acute medical debility. At baseline patient was anorexic. Patient to rehab -Acute urine retention, BPH and patient not taking Flomax Pinzon catheter for now. Encourage oral medications -Hyperlipidemia Lipitor 40 mg daily at bedtime -Chronic insomnia Melatonin 6 mg daily at bedtime -Diabetes mellitus type 2, chronically on oral hypoglycemic Follow Accu-Cheks. Hold hypoglycemics as patient not eating. -Hypothyroid Synthroid 50 g a -Acute UTI with cystitis On Keflex -Autism -COVID-19. No hypoxia Started paxlovid as outpatient. Discontinued - Tried to reassure the patient. In turn to get the medications. And food. Spoke to the nurse and in the aide. Communicated to the cyanide case hardener to hold off discharge . until the patient take his medications and starts eating. Time spent about 40 minutes with over 25 minutes of discussion. Started IV fluids
[2022-01-10] MEDS: ATORVASTATIN 40 MG TAB PO SCH (21:29)
[2022-01-10] MEDS: MELATONIN 3 MG TABLET PO SCH (21:29)
[2022-01-10 21:37] LABS: Glucose,Whole Blood 90 mg/dL (70-110)
[2022-01-10] MEDS: DEXTROSE 5%-0.45% NACL 1,000 ML IV SCH (21:39)
[2022-01-10 21:57] LABS: Glucose,Whole Blood 103 mg/dL (70-110)
[2022-01-11 01:19] LABS: Glucose,Whole Blood 200 mg/dL (70-110)
[2022-01-11] MEDS: DEXTROSE 5%-0.45% NACL 1,000 ML IV SCH ×2 (05:16→16:47)
[2022-01-11 06:11] LABS: African American GFR (CKD) 68 (>60 ml/min/1.73 sqM); Anion Gap 9 mmol/L; Blood Urea Nitrogen 27 mg/dL (9-20); Calcium 8.5 mg/dL (8.4-10.2); Carbon Dioxide 17 mmol/L (22-30); Chloride 112 mmol/L (98-107); Glucose 182 mg/dL (74-99); Non-African American GFR(CKD) 58 (>60 ml/min/1.73 sqM); Potassium 4.1 mmol/L (3.5-5.1); Sodium 138 mmol/L (137-145)
[2022-01-11 07:17] LABS: Glucose,Whole Blood 138 mg/dL (70-110)
[2022-01-11] MEDS: INSULIN ASPART (NovoLOG) 100 UNIT/ML VIAL SQ SCH ×4 (07:32→21:28)
[2022-01-11] MEDS: LEVOTHYROXINE 50 MCG TAB PO SCH (09:07)
[2022-01-11] MEDS: busPIRone HCl 10 MG TAB PO SCH ×2 (09:07→16:51)
[2022-01-11] MEDS: ASPIRIN 81 MG PO SCH (09:07)
[2022-01-11] MEDS: TAMSULOSIN 0.4 MG CAP.ER.24H PO SCH (09:07)
[2022-01-11] MEDS: ENOXAPARIN 40 MG/0.4 ML SYRINGE SQ SCH (09:11)
[2022-01-11] MEDS: QUEtiapine 100 MG TAB PO SCH ×2 (09:12→21:27)
[2022-01-11 11:48] LABS: Glucose,Whole Blood 139 mg/dL (70-110)
[2022-01-11 16:38] LABS: Glucose,Whole Blood 136 mg/dL (70-110)
--- NOTE | 2022-01-11 17:14 | P.PN ---
Progress Note - Text Progress Note Date: 01/11/22 Hospital course: Admitted with increasing lethargy and weakness. He was diagnosed with COVID 19 one week prior to admission. Was given paxlovid. Patient presented with poor urine output for several hours. Not eating or drinking well. Increase lethargic. Not acting himself. Also was on Keflex for UTI when admitted. January 10: I assumed care of patient today from [facility] Spoke to the nurse and the nurse 8. Patient is been refusing to eat food or take his medications. Also not getting his Flomax. Urinary retention. Later today Pinzon catheter was placed. When try to feed the patient reports his hand over his mouth. Did try to reassure the patient. January 11: Patient didn't take his medications today. But not really eating. Patient at baseline is nonverbal but does attempt to talk. Follows commands. Has not been out of bed. Tired. Active Medications Acetaminophen (Acetaminophen Tab 325 Mg Tab) 650 mg PO Q6HR PRN PRN Reason: Mild Pain or Fever > 100.5 Albuterol Sulfate (Albuterol Hfa Inhaler) 2 puff INHALATION RT-Q6H PRN PRN Reason: Shortness Of Breath Or Wheezing Aspirin (Aspirin 81 Mg) 81 mg PO DAILY [facility] Last Admin: 01/11/22 09:07 Dose: 81 mg Atorvastatin Calcium (Atorvastatin 40 Mg Tab) 40 mg PO HS [facility] Last Admin: 01/10/22 21:29 Dose: 40 mg Buspirone HCl (Buspirone Hcl 10 Mg Tab) 10 mg PO BID@0900,1700 [facility] Last Admin: 01/11/22 16:51 Dose: 10 mg Enoxaparin Sodium (Enoxaparin 40 Mg/0.4 Ml Syringe) 40 mg SQ DAILY [facility] Last Admin: 01/11/22 09:11 Dose: 40 mg Fluphenazine HCl (Fluphenazine 5 Mg Tab) 5 mg PO DAILY [facility] Last Admin: 01/11/22 09:07 Dose: 5 mg Dextrose/Sodium Chloride (Dextrose 5%-1/2ns Iv Soln) 1,000 mls @ 100 mls/hr IV .Q10H [facility] Last Admin: 01/11/22 16:47 Dose: Not Given Insulin Aspart (Insulin Aspart (Novolog) 100 Unit/Ml Vial) 0 unit SQ [facility] ON LICENSE OF [facility]; Protocol Last Admin: 01/11/22 16:48 Dose: Not Given Levothyroxine Sodium (Levothyroxine 50 Mcg Tab) 50 mcg PO DAILY@0730 [facility] Last Admin: 01/11/22 09:07 Dose: 50 mcg Melatonin (Melatonin 3 Mg Tablet) 6 mg PO HS [facility] Last Admin: 01/10/22 21:29 Dose: 6 mg Naloxone HCl (Naloxone 0.4 Mg/Ml 1 Ml Vial) 0.2 mg IV Q2M PRN PRN Reason: Opioid Reversal Santyl 1 each TOPICAL Q48H [facility]; Protocol Last Admin: 01/10/22 17:02 Dose: Not Given Quetiapine Fumarate (Quetiapine 100 Mg Tab) 300 mg PO BID [facility] Last Admin: 01/11/22 09:12 Dose: 300 mg Tamsulosin HCl (Tamsulosin 0.4 Mg Cap.Er.24h) 0.4 mg PO PC-BRKFST ON [facility] Last Admin: 01/11/22 09:07 Dose: 0.4 mg On examination: VITAL SIGNS: 98, 62, 18, 93/57, 92% room air GENERAL APPEARANCE: Laying in bed, not in distress, HEENT: Normal external appearance of nose and ear. Oral cavity dry mucous membranes EYES: Pupils equal. Conjunctiva normal. NECK: JVD not raised. Mass not palpable. RESPIRATORY: Respiratory effort normal.-clear to auscultation. CARDIOVASCULAR: First and second sounds normal. No edema. ABDOMEN: Soft. Liver and spleen not palpable. No tenderness. No mass palpable. PSYCHIATRY: Unable to assess as patient not able to talk INVESTIGATIONS, reviewed in the clinical context: January 11: Potassium 4.1 BUN 27 creatinine 1.18 White count 6.4 hemoglobin 12.6 platelets 242 potassium 4.3 creatinine 1.3 Admission labs: Potassium 6.3 BUN 60 creatinine 3.85 lactic acid 3.9 pro-calcitonin 0.6 COVID 19 [PCR]: Detected Assessment and plan: -Acute metabolic encephalopathy, from renal failure on presentation: Improving -Acute kidney injury, patient of ATN and prerenal from decreased oral intake: Better Admission creatinine was 3.8 -Acute anorexia, possibly from metabolic causes and COVID-19 Patient ate some today. Encourage. Did take his medications as morning -Acute medical debility. At baseline patient was ambulating Patient to rehab -Acute urine retention, BPH and patient not taking Flomax Pinzon catheter for now. Encourage oral medications -Hyperlipidemia Lipitor 40 mg daily at bedtime -Chronic insomnia Melatonin 6 mg daily at bedtime -Diabetes mellitus type 2, chronically on oral hypoglycemic Follow Accu-Cheks. Hold hypoglycemics as patient not eating. -Hypothyroid Synthroid 50 g a -Acute UTI with cystitis On Keflex -Autism -COVID-19. No hypoxia Started paxlovid as outpatient. - Spoke to the nurse and the nurse aide. Encourage oral intake. Patient to take his medications today. Hoping for discharge tomorrow.
[2022-01-11 20:54] LABS: Glucose,Whole Blood 118 mg/dL (70-110)
[2022-01-11] MEDS: MELATONIN 3 MG TABLET PO SCH (21:27)
[2022-01-11] MEDS: ATORVASTATIN 40 MG TAB PO SCH (21:27)
[2022-01-12] MEDS: DEXTROSE 5%-0.45% NACL 1,000 ML IV SCH ×2 (06:12→10:55)
[2022-01-12 07:02] LABS: Glucose,Whole Blood 112 mg/dL (70-110)
[2022-01-12] MEDS: INSULIN ASPART (NovoLOG) 100 UNIT/ML VIAL SQ SCH ×2 (07:06→13:44)
[2022-01-12] MEDS: LEVOTHYROXINE 50 MCG TAB PO SCH (07:36)
[2022-01-12] MEDS: ENOXAPARIN 40 MG/0.4 ML SYRINGE SQ SCH (07:38)
[2022-01-12] MEDS: ASPIRIN 81 MG PO SCH (07:38)
[2022-01-12] MEDS: busPIRone HCl 10 MG TAB PO SCH (07:38)
[2022-01-12] MEDS: TAMSULOSIN 0.4 MG CAP.ER.24H PO SCH (07:38)
[2022-01-12] MEDS: QUEtiapine 100 MG TAB PO SCH (07:39)
[2022-01-12 11:32] LABS: Glucose,Whole Blood 144 mg/dL (70-110)
--- NOTE | 2022-01-12 12:56 | P.DS ---
Providers Date of admission: 01/03/22 19:24 Expected date of discharge: 01/12/22 Attending physician: Braeden Peace Consults: 01/04/22 06:52 Consult Physician Routine Consulting Provider: Wally Gu Consult Reason/Comments: urinary retention Do you want consulting provider notified?: Yes Primary care physician: Jacob Merrill MD Hospital Course: Hospital course: Admitted with increasing lethargy and weakness. He was diagnosed with COVID 19 one week prior to admission. Was given paxlovid. Patient presented with poor urine output for several hours. Not eating or drinking well. Increase lethargic. Not acting himself. Also was on Keflex for UTI when admitted. January 10: I assumed care of patient today from [facility] Spoke to the nurse and the nurse 8. Patient is been refusing to eat food or take his medications. Also not getting his Flomax. Urinary retention. Later today Pinzon catheter was placed. When try to feed the patient reports his hand over his mouth. Did try to reassure the patient. January 11: Patient did take his medications today. But not really eating. Patient at baseline is nonverbal but does attempt to talk. Follows commands. Has not been out of bed. Tired. January 12: Taking his medications. Eating better. Weak. Communicated with the nurse and the heel caser. Will DC to rehab. OBRAl filled out. Pinzon was disc ontinued yesterday. Made urine. Discussion and discharge planning more than 35 minutes On examination: VITAL SIGNS: 97.5, 73, 16, 112/71, 98% room air GENERAL APPEARANCE: Laying in bed, comfortable HEENT: Normal external appearance of nose and ear. Oral cavity dry mucous membranes EYES: Pupils equal. Conjunctiva normal. NECK: JVD not raised. Mass not palpable. RESPIRATORY: Respiratory effort normal.-clear to auscultation. CARDIOVASCULAR: First and second sounds normal. No edema. ABDOMEN: Soft. Liver and spleen not palpable. No tenderness. No mass palpable. PSYCHIATRY: Unable to assess as patient not able to talk INVESTIGATIONS, reviewed in the clinical context: January 11: Potassium 4.1 BUN 27 creatinine 1.18 White count 6.4 hemoglobin 12.6 platelets 242 potassium 4.3 creatinine 1.3 Admission labs: Potassium 6.3 BUN 60 creatinine 3.85 lactic acid 3.9 pro-calcitonin 0.6 COVID 19 [PCR]: Detected Assessment and plan: -Acute metabolic encephalopathy, from renal failure on presentation: Improving -Acute kidney injury, patient of ATN and prerenal from decreased oral intake: Better Admission creatinine was 3.8 -Acute anorexia, possibly from metabolic causes and COVID-19: Better Encourage by mouth intake -Acute medical debility. At baseline patient was ambulating Inpatient rehab -Acute urine retention, BPH and patient not taking Flomax Pinzon catheter discontinued -Hyperlipidemia Lipitor 40 mg daily at bedtime -Chronic insomnia Melatonin 6 mg daily at bedtime -Diabetes mellitus type 2, chronically on oral hypoglycemic Follow Accu-Cheks. Resume metformin at 500 mg twice a day -Hypothyroid Synthroid 50 g a -Acute UTI with cystitis On Keflex completed -Autism -COVID-19. No hypoxia Started paxlovid as outpatient. -Completed -Full code Disposition: Rehab Plan - Discharge Summary New Discharge Prescriptions: New Tamsulosin [Flomax] 0.4 mg PO PC-BRKFST #30 cap Albuterol Inhaler [Ventolin Hfa Inhaler] 2 puff INHALATION RT-Q6H PRN #1 each PRN Reason: Shortness Of Breath Or Wheezing Continue Magnesium Hydroxide [Milk of Magnesia] 400 mg PO DIRECTED PRN PRN Reason: Constipation Phenyleph/Mineral Oil/Petrolat [Preparation H Ointment] 1 applic RECTAL DAILY PRN PRN Reason: Hemorrhoids Na Phos,M-B/Na Phos,Di-Ba [Fleet Adult] 133 ml RECTAL DAILY PRN PRN Reason: Constipation QUEtiapine FUMARATE [Seroquel] 300 mg PO BID Melatonin 6 mg PO HS Levothyroxine Sodium [Synthroid] 50 mcg PO DAILY Atorvastatin [Lipitor] 40 mg PO HS ALPRAZolam [Xanax] 0.5 mg PO DAILY PRN #3 tab PRN Reason: BEFORE MEDICAL APPT Lactulose 10 gm PO DIRECTED PRN PRN Reason: Constipation Loperamide HCl [Loperamide] 2 mg PO QID PRN PRN Reason: Diarrhea Acetaminophen [Tylenol Extra Strength] 500 mg PO Q6H PRN PRN Reason: Fever And/ Or Pain Collagenase [Santyl Ointment] 1 applic TOPICAL Q48H fluPHENAZine [Prolixin] 5 mg PO DAILY busPIRone HCl [Buspar] 10 mg PO BID@0900,1700 bisacodyL [Dulcolax] 10 mg PO HS Aspirin EC [Ecotrin Low Dose] 81 mg PO DAILY Ammonium Lactate Cream [Lac-Hydrin 12% Cream] 1 applic TOPICAL DAILY Discontinued Cephalexin [Keflex] 500 mg PO TID 7 Days #21 cap Cephalexin [Keflex] 500 mg PO TID #21 cap guaiFENesin-DM 600/30MG [Mucinex Dm] 1 tab PO Q12HR Docusate Sodium [Dok] 100 mg PO BID PRN PRN Reason: Constipation Cholecalciferol [Vitamin D3 (25 Mcg = 1000 Iu)] 50 mcg PO DAILY Ascorbic Acid [Vitamin C] 1,000 mg PO DAILY Nirmatrelvir/Ritonavir [Paxlovid 2X150 mg-100 mg (Eua)] 1 dose PO BID Mupirocin 2% Oint [Bactroban 2% Oint] 1 applic TOPICAL DAILY metFORMIN HCL [Glucophage] 850 mg PO BID Vits A and D/White Pet/Lanolin [A and D Ointment] 1 applic TOPICAL DIRECTED Discharge Medication List Acetaminophen [Tylenol Extra Strength] 500 mg PO Q6H PRN 12/31/21 [History] Ammonium Lactate Cream [Lac-Hydrin 12% Cream] 1 applic TOPICAL DAILY 12/31/21 [History] Aspirin EC [Ecotrin Low Dose] 81 mg PO DAILY 12/31/21 [History] Atorvastatin [Lipitor] 40 mg PO HS 12/31/21 [History] Collagenase [Santyl Ointment] 1 applic TOPICAL Q48H 12/31/21 [History] Lactulose 10 gm PO DIRECTED PRN 12/31/21 [History] Levothyroxine Sodium [Synthroid] 50 mcg PO DAILY 12/31/21 [History] Loperamide HCl [Loperamide] 2 mg PO QID PRN 12/31/21 [History] Magnesium Hydroxide [Milk of Magnesia] 400 mg PO DIRECTED PRN 12/31/21 [History] Melatonin 6 mg PO HS 12/31/21 [History] Na Phos,M-B/Na Phos,Di-Ba [Fleet Adult] 133 ml RECTAL DAILY PRN 12/31/21 [History] Phenyleph/Mineral Oil/Petrolat [Preparation H Ointment] 1 applic RECTAL DAILY PRN 12/31/21 [History] QUEtiapine FUMARATE [Seroquel] 300 mg PO BID 12/31/21 [History] bisacodyL [Dulcolax] 10 mg PO HS 12/31/21 [History] busPIRone HCl [Buspar] 10 mg PO BID@0900,1700 12/31/21 [History] fluPHENAZine [Prolixin] 5 mg PO DAILY 12/31/21 [History] ALPRAZolam [Xanax] 0.5 mg PO DAILY PRN #3 tab 01/12/22 [Rx] Albuterol Inhaler [Ventolin Hfa Inhaler] 2 puff INHALATION RT-Q6H PRN #1 each 01/12/22 [Rx] Tamsulosin [Flomax] 0.4 mg PO PC-BRKFST #30 cap 01/12/22 [Rx] Follow up Appointment(s)/Referral(s): Filomena Hernandez DO [REFERRING] - 1-2 days Discharge Disposition: TRANSFER TO SNF/ECF
[2022-01-12 13:51] VITALS: BP 110/70; PULSE 81; RESP 18; TEMP 98.5
[2022-01-12] MEDS: SANTYL TOPICAL SCH (16:38)
== END 2022-01-12 17:49 | DRG 177 ==
LOC: EEVIPCON 17:19 → EC 17:19 → 4SSUR 19:24
PROVIDERS: ADMIT Hospitalist; ATTEND Hospitalist
DX: U07.1 COVID-19 (principal); G93.41 Metabolic encephalopathy; N17.0 Acute kidney failure with tubular necrosis; E87.2 Acidosis; F84.0 Autistic disorder; D69.6 Thrombocytopenia, unspecified; F31.9 Bipolar disorder, unspecified; D64.9 Anemia, unspecified; E03.9 Hypothyroidism, unspecified; E11.9 Type 2 diabetes mellitus without complications; I95.9 Hypotension, unspecified; N30.90 Cystitis, unspecified without hematuria; E87.5 Hyperkalemia; E86.0 Dehydration; I25.10 Atherosclerotic heart disease of native coronary artery without angina pectoris; R63.0 Anorexia; I44.4 Left anterior fascicular block; R62.50 Unspecified lack of expected normal physiological development in childhood; R33.8 Other retention of urine; N40.1 Benign prostatic hyperplasia with lower urinary tract symptoms; R79.89 Other specified abnormal findings of blood chemistry; R53.81 Other malaise; E78.5 Hyperlipidemia, unspecified; F51.04 Psychophysiologic insomnia; Z79.82 Long term (current) use of aspirin; Z79.899 Other long term (current) drug therapy; Z79.84 Long term (current) use of oral hypoglycemic drugs; Z79.890 Hormone replacement therapy; Z88.8 Allergy status to other drugs, medicaments and biological substances; Z68.27 Body mass index [BMI] 27.0-27.9, adult
CPT/HCPCS: 36415; 71045; 76770; 80048; 80053; 81001; 82728; 83605; 83615; 83735; 83880; 84132; 84145; 84484; 85025; 85379; 85384; 85610; 85730; 86140; 87040; 87635; 93005; 94760; 96361; 96374; 96375; 99291